=== PATIENT | male | born 1985 | race Caucasian/White ===

== ENCOUNTER 2016-12-24 17:50 | Emergency (ER) | payer SELFPAY ==
[~2016-12-24 17:50] MED LIST: CIPR500T4 PO; KETO10 PO; NOVO7030P2 SQ; NOVORP2 SQ
[2016-12-24 17:51] VITALS: BP 137/85; PULSE 97; RESP 16; TEMP 98.1; O2SAT 94
== END 2016-12-24 19:10 | disposition left against medical advice (07) ==
LOC: NED 17:50
DX: S89.90XA Unspecified injury of unspecified lower leg, initial encounter (principal); X58.XXXA Exposure to other specified factors, initial encounter; Z53.21 Procedure and treatment not carried out due to patient leaving prior to being seen by health care provider
CPT/HCPCS: 99281

== ENCOUNTER 2017-05-25 10:45 | Inpatient (IN) | payer OTHER ==
[~2017-05-25] VITALS: Ht 172.7 cm; Wt 74.4 kg
[2017-05-25 10:47] VITALS: BP 147/94; PULSE 84; RESP 15; TEMP 98.2; O2SAT 99
[2017-05-25 11:04] VITALS: BP 138/80; PULSE 76; RESP 18; TEMP 99; O2SAT 100
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
[2017-05-25] MEDS ORDERED: SODIUM CHLOR 0.9% 1000 ML INJ 1,000 ML IV SCH ×2 (11:16→13:30)
[2017-05-25] MEDS ORDERED: NOVOLOGP2 SQ (11:18)
[2017-05-25] MEDS ORDERED: LANTUS2P SQ (11:18)
[2017-05-25] MEDS ORDERED: HYDR4TAB PO (11:18)
[2017-05-25] MEDS ORDERED: PIPERACIL-TAZO 4.5 GM PREMIX 100 ML IV ONE (11:30)
[2017-05-25] MEDS ORDERED: SODIUM CHLORIDE 0.9% FLUSH 10 ML FLUSH IVF PRN (11:30)
[2017-05-25] MEDS ORDERED: KETOROLAC TROMETHAMINE 30 MG/ML (IVP) VIAL IVP ONE (11:30)
[2017-05-25] MEDS ORDERED: VANCOMYCIN INJ 1,000 MG in SODIUM CHLOR 0.9% 250 ML INJ 250 ML IV ONE (11:30)
[2017-05-25] MEDS ORDERED: PROPOFOL 200 MG/20 ML AMP IV ONE (12:00)
[2017-05-25] MEDS ORDERED: NEOMYCIN/POLYMYXIN 1 ML G.U. IRRIGANT IRRIGATION ONE (12:00)
[2017-05-25] MEDS ORDERED: ONDANSETRON HCL 4 MG/2 ML VIAL IV PUSH ONE (12:00)
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
[2017-05-25] MEDS ORDERED: DEXTROSE 50% IN WATER 50 ML VIAL(D50) IV PUSH ONE (12:15)
--- NOTE | 2017-05-25 12:18 | RADRPT ---
EXAM DATE/TIME: 05/25/2017 11:50 [facility] COMPARISON: No previous studies available for comparison. INDICATIONS : Fever. Pre-operative for right hand surgery from bone infection. MEDICAL HISTORY : None. SURGICAL HISTORY : None. ENCOUNTER: Initial ACUITY: 1 day PAIN SCORE: 0/10 LOCATION: Bilateral chest FINDINGS: A single view of the chest demonstrates the lungs to be symmetrically aerated without evidence of mas s, infiltrate or effusion. The cardiomediastinal contours are unremarkable. Osseous structures are intact. CONCLUSION: No acute cardiopulmonary process. Trever Myrick MD on May 25, 2017 at 12:16 Board Certified Radiologist. This report was verified electronically.
[2017-05-25 12:29] LABS: AUTOMATED NEUTROPHIL # 4.9 TH/MM3 (1.8-7.7); BASOPHIL % 0.4 % (0.0-2.0); EOSINOPHIL # 0.2 TH/MM3 (0-0.4); EOSINOPHIL % 2.2 % (0.0-4.0); HEMO FLAGS DIFF FINAL; LYMPH % 27.8 % (9.0-44.0); LYMPHOCYTE # 2.3 TH/MM3 (1.0-4.8); MEAN CELL VOLUME 83.6 FL (80.0-100.0); MEAN CORPUSCULAR HEMOGLOBIN 28.1 PG (27.0-34.0); MEAN CORPUSCULAR HGB CONC 33.7 % (32.0-36.0); MONO % 11.6 % (0.0-8.0); PLATELET COUNT 270 TH/MM3 (150-450); RED BLOOD COUNT 4.18 MIL/MM3 (4.50-5.90); WHITE BLOOD COUNT 8.4 TH/MM3 (4.0-11.0)
[2017-05-25 12:41] LABS: APTT (PATIENT) 26.8 SEC (24.3-30.1); INTERNATIONAL NORMALIZED RATIO 0.9 RATIO; PROTHROMBIN TIME - PATIENT 10.2 SEC (9.8-11.6)
[2017-05-25] MEDS ORDERED: HYDROmorphone HCL PF 1 MG/ML VIAL IV PUSH ONE ×2 (12:45→18:15)
[2017-05-25 13:01] LABS: ALKALINE PHOSPHATASE 150 U/L (45-117); ALT (GPT) 96 U/L (12-78); ANION GAP 4 MEQ/L (5-15); BICARBONATE 31.2 MEQ/L (21.0-32.0); BLOOD UREA NITROGEN 8 MG/DL (7-18); CHLORIDE 103 MEQ/L (98-107); GLOMERULAR FILTRATION RATE 96 ML/MIN (>89); SODIUM (NA) 138 MEQ/L (136-145); TOTAL BILIRUBIN ADULT 0.3 MG/DL (0.2-1.0)
[2017-05-25 13:02] LABS: AST (GOT) 85 U/L (15-37); POTASSIUM 4.1 MEQ/L (3.5-5.1)
[2017-05-25] MEDS ORDERED: Vancomycin Consult Pharmacy 1 EA OTHER SCH (13:30)
[2017-05-25] MEDS ORDERED: VANCOMYCIN INJ 1,000 MG in SODIUM CHLOR 0.9% 250 ML INJ 250 ML IV SCH (13:30)
[2017-05-25] MEDS ORDERED: DEXT 5%-NACL 0.45% 1000 ML INJ 1,000 ML IV SCH (14:15)
[2017-05-25] MEDS ORDERED: MUPIROCIN 2% OINT 22 GM TUBE ONE (14:39)
[2017-05-25] MEDS ORDERED: LIDOCAINE HCL 2% 50 ML VIAL ONE (14:39)
[2017-05-25] MEDS ORDERED: BUPIVACAINE HCL PF 0.5% 30 ML VIAL ONE (14:39)
[2017-05-25] MEDS ORDERED: ONDANSETRON HCL 4 MG/2 ML VIAL IV PRN (15:00)
[2017-05-25] MEDS ORDERED: MIDAZOLAM HCL 2 MG/2 ML VIAL ONE (15:13)
[2017-05-25] MEDS ORDERED: DEXTROSE 50% IN WATER 50 ML SYRINGE ONE (15:13)
[2017-05-25] MEDS ORDERED: FAMOTIDINE 20 MG/2 ML VIAL ONE (15:13)
[2017-05-25] MEDS ORDERED: VANCOMYCIN HCL 1000 MG VIAL ONE (17:02)
[2017-05-25] MEDS ORDERED: *MEPERIDINE 25 MG INJ VIAL PERIprocedural Use ONLY ONE (17:38)
--- NOTE | 2017-05-25 17:43 | PD.OP ---
Operative Report Preoperative Diagnosis: (1) Acute osteomyelitis of right radius (2) Infectious tenosynovitis of right wrist extensor Postoperative Diagnosis: (1) Infectious tenosynovitis of right wrist extensor (2) Acute osteomyelitis of right radius Procedure: exploration, excisional debridement, wash first extensor compartment right wrist bone biospy distal radius right wrist Anesthesia: general Surgeon: Eduardo Card [employer] Technician(s): josie Operation and Findings: infectious extensor tenosynovitis first extensor compartment right wrist partial tear of abductor pollicis longus and extensor pollicis brevis tendons soft distal radius metaphysis over the first extensor compartment Eduardo Card MD May 25, 2017 17:43
[2017-05-25] MEDS ORDERED: DO NOT ADM ANY ANTICOAGULANT DRUGS PRN (17:45)
[2017-05-25] MEDS ORDERED: *morphine SULFATE 8 MG/ML PERIprocedure ONLY ONE (17:45)
[2017-05-25] MEDS: INSULIN ASPART SUPPLEMENTAL SCALE SQ SCH ×2 (17:49→21:00)
[2017-05-25] MEDS ORDERED: *HYDROmorphone PF 1 MG VIAL PERIprocedural Use ONLY ONE ×2 (17:50→18:02)
[2017-05-25] MEDS ORDERED: PIPERACIL-TAZO 4.5 GM PREMIX 100 ML IV SCH (19:30)
[2017-05-25 20:00] VITALS: BP 162/91; PULSE 61; RESP 18; TEMP 95.4; O2SAT 94
[2017-05-25] MEDS: VANCOMYCIN INJ 1,100 MG in SODIUM CHLOR 0.9% 250 ML INJ 250 ML IV SCH (21:57)
[2017-05-25] MEDS: HYDROmorphone HCL PF 1 MG/ML VIAL IV PUSH PRN (21:57)
[2017-05-25] MEDS: PIPERACIL-TAZO 3.375 GM PREMIX 50 ML IV SCH (22:09)
[2017-05-26] VITALS: BP 153/79; PULSE 68; RESP 16; TEMP 97.3; O2SAT 97
[2017-05-26] MEDS: HYDROmorphone HCL PF 1 MG/ML VIAL IV PUSH PRN ×6 (02:27→23:24)
[2017-05-26] MEDS ORDERED: SODIUM CHLOR 0.9% 1000 ML INJ 1,000 ML IV SCH (02:30)
[2017-05-26] MEDS ORDERED: INSULIN ASPART 1,000 UNITS/10 ML VIAL SQ ONE ×2 (02:30→12:00)
[2017-05-26] MEDS: PIPERACIL-TAZO 3.375 GM PREMIX 50 ML IV SCH ×4 (03:00→21:08)
[2017-05-26 04:00] VITALS: BP 139/84; PULSE 52; RESP 18; TEMP 98; O2SAT 96
[2017-05-26] MEDS: VANCOMYCIN INJ 1,100 MG in SODIUM CHLOR 0.9% 250 ML INJ 250 ML IV SCH ×2 (06:42→13:00)
[2017-05-26] MEDS: INSULIN ASPART SUPPLEMENTAL SCALE SQ SCH ×4 (07:00→21:19)
[2017-05-26 08:00] VITALS: BP 135/81; PULSE 57; RESP 16; TEMP 97.9; O2SAT 97
[2017-05-26] MEDS ORDERED: INSULIN ASPART SUPPLEMENTAL SCALE SQ SCH (08:00)
--- NOTE | 2017-05-26 10:32 | HHI.PR ---
Subjective Remarks wants his lantus at night 30 units. Objective Vitals heart reg lung cta abd s/.nt ext right forearm bandaged. Vital Signs Date Time Temp Pulse Resp B/P (MAP) Pulse Ox O2 Delivery O2 Flow Rate FiO2 05/26/17 07:21 18 05/26/17 04:00 98.0 52 18 139/84 (102) 96 05/26/17 00:00 97.3 68 16 153/79 (103) 97 05/25/17 20:00 95.4 61 18 162/91 (114) 94 05/25/17 18:38 15 05/25/17 18:30 97.6 68 16 143/75 (97) 97 Room Air 05/25/17 18:20 15 05/25/17 18:20 15 05/25/17 18:15 69 15 140/73 (95) 96 Room Air 05/25/17 18:00 72 15 147/88 (107) 95 Room Air 05/25/17 17:50 15 05/25/17 17:45 78 15 151/95 (113) 95 Room Air 05/25/17 17:38 97.9 82 14 159/96 (117) 100 Nasal Cannula 3 05/25/17 14:57 05/25/17 11:04 99.0 76 18 138/80 (99) 100 Room Air 05/25/17 11:04 73 16 100 Room Air 05/25/17 10:47 98.2 84 15 147/94 (111) 99 Result Diagram: 05/25/17 1212 05/25/17 1212 Imaging MRI Wrist W/O Contrast (05/23/17): - Severe focal 1st extensor compartment tendonitis and tenosynovitis. Apparent sinus tract extending to the lateral skin surface as well as adjacent distal radius bony edema and mild erosion. Findings are suspicious for infection. In the setting of infection, the bony findings would indicate osteomyelitis. A/P Problem List: (1) Acute osteomyelitis of right radius ICD Codes: M86.131 - Other acute osteomyelitis, right radius and ulna Status: Acute Plan: - The patient is a 31 y/o WM with type 1 diabetes mellitus, hx of herniated discs and tobacco use. - Pt presented to the ED from Dr. Muniz's office for admission for OR debridement of a right wrist wound and possible osteomyelitis. - Pt states that he was tearing up boards from an old porch and he is rebuilding and started having some pain in the right wrist on 04/28/17. He thinks there he may have possible been bit by a spider as he reports that there were two red dots on his skin where he was having pain and there were a lot of spiders where he was tearing up the boards. He was seen in the ED at [facility] on 04/30 and had an Xray which noted soft tissue swelling about the wrist and hand and was diagnosed with a right wrist strain and was prescribed a wrist brace and pain medication. He was sent to see a sports development officer, Dr. Ross, who sent him for an MRI of the wrist and prescribed Dilaudid. - Outpt MRI Wrist W/O Contrast (05/23/17) which noted severe focal 1st extensor compartment tendonitis and tenosynovitis. Apparent sinus tract extending to the lateral skin surface as well as adjacent distal radius bony edema and mild erosion. Findings are suspicious for infection. In the setting of infection, the bony findings would indicate osteomyelitis. - Two days ago he states that when he took the brace off a small piece of skin came off and the erythema, swelling and pain worsened. His wound opened up and has been draining purulent material for the last 2 days as well. - He was sent to Dr. Muniz's office and was recommended to go to the ED for IV anabiotics, ID consultation -On 05/25: s/p exploration, excisional debridement, wash first extensor compartment right wrist bone biospy distal radius right wrist infectious extensor tenosynovitis first extensor compartment right wrist partial tear of abductor pollicis longus and extensor pollicis brevis tendons soft distal radius metaphysis over the first extensor compartment cont pain control ID consulted He has been on zosyn/vanco f/u surgical cx wound care per Hand surgery. (2) Diabetes mellitus type 1 ICD Codes: E10.9 - Type 1 diabetes mellitus without complications Status: Chronic Plan: - Pt is a type 1 diabetic since age 7. - He currently used NovoLog SSI and Lantus 30 units at bedtime. - He reports that for some time now he has issues with episodic hypoglycemia. -Pt eager to resume 30units at night. Joe Umana MD May 26, 2017 10:32
[2017-05-26 12:00] VITALS: BP 146/84; PULSE 62; RESP 14; TEMP 98; O2SAT 96
[2017-05-26] MEDS ORDERED: PHARMACY ORDERED LAB ONE (12:45)
[2017-05-26 13:56] LABS: BICARBONATE 31.2 MEQ/L (21.0-32.0); INDIRECT BILIRUBIN 0.4 MG/DL (0.0-0.8); MAGNESIUM 2.1 MG/DL (1.5-2.5); POTASSIUM 3.8 MEQ/L (3.5-5.1); TOTAL BILIRUBIN ADULT 0.5 MG/DL (0.2-1.0)
[2017-05-26] MEDS: VANCOMYCIN 1,000 MG/NS 250 ML IV SCH ×4 (15:08→23:25)
[2017-05-26 16:00] VITALS: BP 123/82; PULSE 65; RESP 16; TEMP 97.3; O2SAT 99
[2017-05-26 18:39] LABS: AUTOMATED NEUTROPHIL # 8.5 TH/MM3 (1.8-7.7); BASOPHIL % 0.4 % (0.0-2.0); EOSINOPHIL # 0.1 TH/MM3 (0-0.4); EOSINOPHIL % 0.5 % (0.0-4.0); HEMATOCRIT 37.7 % (39.0-51.0); HEMO FLAGS DIFF FINAL; LYMPH % 14.5 % (9.0-44.0); LYMPHOCYTE # 1.6 TH/MM3 (1.0-4.8); MEAN CELL VOLUME 83.2 FL (80.0-100.0); MEAN CORPUSCULAR HEMOGLOBIN 29.3 PG (27.0-34.0); MEAN CORPUSCULAR HGB CONC 35.3 % (32.0-36.0); MONO % 5.8 % (0.0-8.0); NEUT % 78.8 % (16.0-70.0); PLATELET COUNT 309 TH/MM3 (150-450); RED BLOOD COUNT 4.53 MIL/MM3 (4.50-5.90); RED CELL DISTRIBUTION WIDTH 13.9 % (11.6-17.2); WHITE BLOOD COUNT 10.8 TH/MM3 (4.0-11.0)
--- NOTE | 2017-05-26 18:43 | EKG ---
Date Performed: 05/25/2017 Time Performed: 12:45:06 PTAGE: 31 years EKG: Sinus rhythm NORMAL ECG PREVIOUS TRACING : 11/08/2012 23.31 Compared to prior tracing no significant change DOCTOR: Dinah Huynh Interpretating Date/Time 05/26/2017 18:42:45
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
[2017-05-26 20:00] VITALS: BP 138/75; PULSE 64; RESP 18; TEMP 98; O2SAT 97
[2017-05-26] MEDS: INSULIN DETEMIR 100 UNITS/ML VIAL SQ SCH (21:20)
[2017-05-27] VITALS: PULSE 72; RESP 18; TEMP 97.4; O2SAT 98
[2017-05-27] MEDS: INSULIN ASPART SUPPLEMENTAL SCALE SQ SCH ×7 (00:18→23:55)
[2017-05-27] MEDS: HYDROmorphone HCL PF 1 MG/ML VIAL IV PUSH PRN ×4 (03:29→21:34)
[2017-05-27] MEDS: PIPERACIL-TAZO 3.375 GM PREMIX 50 ML IV SCH ×4 (03:30→20:12)
[2017-05-27] MEDS: VANCOMYCIN 1,000 MG/NS 250 ML IV SCH ×6 (07:28→21:33)
[2017-05-27 12:00] VITALS: BP 161/75; PULSE 62; RESP 16; TEMP 98.2; O2SAT 97
--- NOTE | 2017-05-27 12:22 | PD.ORT.PN ---
Subjective Post Op Day #: 2 Pain Scale: pain improved, but right wrist still painful Subjective Remarks some better Objective Vitals Vital Signs Date Time Temp Pulse Resp B/P (MAP) Pulse Ox O2 Delivery O2 Flow Rate FiO2 05/27/17 00:00 97.4 72 18 98 05/26/17 20:00 98.0 64 18 138/75 (96) 97 05/26/17 16:00 97.3 65 16 123/82 (96) 99 I/O 05/26/17 05/26/17 05/26/17 05/27/17 05/27/17 05/27/17 07:00 15:00 23:00 07:00 15:00 23:00 Intake Total 850 ml 1020 ml Output Total 3050 ml 1000 ml Balance -3050 ml -150 ml 1020 ml Intake Oral 800 ml 720 ml IV Total 50 ml 300 ml Output Urine Total 3050 ml 1000 ml # Bowel Movements 0 Result Diagram: 05/26/17 1808 05/26/17 1311 Other Results cultures tissue and swab right wrist negative thus far Objective Remarks right wrist wound with minimal erythema and serosanguinous drainage on the dressing. Able to move fingers well Assessment & Plan Ortho Post Op Day #: 2 Problem List: (1) Acute osteomyelitis of right radius ICD Codes: M86.131 - Other acute osteomyelitis, right radius and ulna Status: Acute Plan: Continue IV antibiotics and check cultures. All Cultures negative thus far. Had Temp Wound cleaned with normal saline and lightly repacked with 1/4" plain gauze and sterile 4x4s, ABD and Sanchez wrap applied. Has had improvement in redness and pain. Wound cleaned with normal saline and repacked with 1/4" plain gauze and sterile 4x4s, ABD and Sanchez applied. Continue IV antibiotics and check cultures which are negative thus far. Improving and Dr. Card will see tomorrow, but had temp of 100.3 yesterday. (2) Infectious tenosynovitis of right wrist extensor ICD Codes: M65.131 - Other infective (teno)synovitis, right wrist (3) Diabetes mellitus type 1 ICD Codes: E10.9 - Type 1 diabetes mellitus without complications Status: Chronic Eunice,Marci Steinberg MD May 27, 2017 12:22
[2017-05-27] MEDS ORDERED: PHARMACY ORDERED LAB ONE (14:45)
--- NOTE | 2017-05-27 15:45 | HHI.PR ---
Subjective Remarks no complaints Objective Vitals lying on the couch heart reg lungc ta abd s/nt ext right forearm bandaged dark scars on both forearms/arms Vital Signs Date Time Temp Pulse Resp B/P (MAP) Pulse Ox O2 Delivery O2 Flow Rate FiO2 05/27/17 12:00 98.2 62 16 161/75 (103) 97 05/27/17 00:00 97.4 72 18 98 05/26/17 20:00 98.0 64 18 138/75 (96) 97 05/26/17 16:00 97.3 65 16 123/82 (96) 99 Result Diagram: 05/26/17 1808 05/26/17 1311 Imaging MRI Wrist W/O Contrast (05/23/17): - Severe focal 1st extensor compartment tendonitis and tenosynovitis. Apparent sinus tract extending to the lateral skin surface as well as adjacent distal radius bony edema and mild erosion. Findings are suspicious for infection. In the setting of infection, the bony findings would indicate osteomyelitis. A/P Problem List: (1) Acute osteomyelitis of right radius ICD Codes: M86.131 - Other acute osteomyelitis, right radius and ulna Status: Acute Plan: - The patient is a 31 y/o WM with type 1 diabetes mellitus, hx of herniated discs and tobacco use. Reported recent hep c dx by family/pt denies - Pt presented to the ED from Dr. Muniz's office for admission for OR debridement of a right wrist wound and possible osteomyelitis. - Pt states that he was tearing up boards from an old porch and he is rebuilding and started having some pain in the right wrist on 04/28/17. He thinks there he may have possible been bit by a spider as he reports that there were two red dots on his skin where he was having pain and there were a lot of spiders where he was tearing up the boards. He was seen in the ED at [facility] on 04/30 and had an Xray which noted soft tissue swelling about the wrist and hand and was diagnosed with a right wrist strain and was prescribed a wrist brace and pain medication. He was sent to see a portfolio specialist, Dr. Ross, who sent him for an MRI of the wrist and prescribed Dilaudid. - Outpt MRI Wrist W/O Contrast (05/23/17) which noted severe focal 1st extensor compartment tendonitis and tenosynovitis. Apparent sinus tract extending to the lateral skin surface as well as adjacent distal radius bony edema and mild erosion. Findings are suspicious for infection. In the setting of infection, the bony findings would indicate osteomyelitis. - Two days ago he states that when he took the brace off a small piece of skin came off and the erythema, swelling and pain worsened. His wound opened up and has been draining purulent material for the last 2 days as well. - He was sent to Dr. Muniz's office and was recommended to go to the ED for IV anabiotics, ID consultation -On 05/25: s/p exploration, excisional debridement, wash first extensor compartment right wrist bone biospy distal radius right wrist infectious extensor tenosynovitis first extensor compartment right wrist partial tear of abductor pollicis longus and extensor pollicis brevis tendons soft distal radius metaphysis over the first extensor compartment -05/25 surgical cxs growing viridans strep. cont pain control ID consulted He has been on zosyn/vanco f/u surgical cx final wound care per Hand surgery. bandaged changed today. (2) Diabetes mellitus type 1 ICD Codes: E10.9 - Type 1 diabetes mellitus without complications Status: Chronic Plan: - Pt is a type 1 diabetic since age 7. - He currently used NovoLog SSI and Lantus 30 units at bedtime. - He reports that for some time now he has issues with episodic hypoglycemia. - on levemir currently. Joe Umana MD May 27, 2017 15:45
[2017-05-27 16:00] VITALS: BP 136/68; PULSE 64; RESP 17; TEMP 98.4; O2SAT 96
[2017-05-27] MEDS: HYDROmorphone HCL 2 MG TAB PO PRN ×2 (16:01→20:13)
[2017-05-27 20:00] VITALS: BP 154/95; PULSE 68; RESP 18; TEMP 97.8; O2SAT 97
[2017-05-27] MEDS: INSULIN DETEMIR 100 UNITS/ML VIAL SQ SCH (20:16)
[2017-05-27 22:29] VITALS: BP 148/74
[2017-05-28] VITALS: BP 144/66; PULSE 58; RESP 18; TEMP 95.6; O2SAT 98
[2017-05-28] MEDS: HYDROmorphone HCL 2 MG TAB PO PRN ×6 (00:15→21:37)
[2017-05-28] MEDS: HYDROmorphone HCL PF 1 MG/ML VIAL IV PUSH PRN ×6 (01:33→23:52)
[2017-05-28] MEDS: PIPERACIL-TAZO 3.375 GM PREMIX 50 ML IV SCH ×4 (03:27→19:54)
[2017-05-28] MEDS: INSULIN ASPART SUPPLEMENTAL SCALE SQ SCH ×6 (03:32→23:59)
[2017-05-28] MEDS: VANCOMYCIN 1,000 MG/NS 250 ML IV SCH ×6 (05:41→21:38)
[2017-05-28 08:00] VITALS: BP 150/83; PULSE 60; RESP 20; TEMP 97.4; O2SAT 96
--- NOTE | 2017-05-28 10:36 | HHI.PR ---
Subjective Remarks Pt overall feeling better. Pain is controlled Afebrile Objective Vitals Vital Signs Date Time Temp Pulse Resp B/P (MAP) Pulse Ox O2 Delivery O2 Flow Rate FiO2 05/28/17 08:00 97.4 60 20 150/83 (105) 96 05/28/17 07:45 Room Air 05/28/17 06:11 20 05/28/17 05:16 20 05/28/17 00:00 95.6 58 18 144/66 (92) 98 05/28/17 00:00 Room Air 05/27/17 22:29 148/74 (98) 05/27/17 20:00 Room Air 05/27/17 20:00 97.8 68 18 154/95 (114) 97 05/27/17 16:00 98.4 64 17 136/68 (90) 96 05/27/17 12:00 98.2 62 16 161/75 (103) 97 05/28/17 05/28/17 05/29/17 15:00 23:00 07:00 Intake Total 240 ml Balance 240 ml Intake Oral 240 ml Result Diagram: 05/26/17 1808 05/28/17 0515 Other Results Laboratory Tests Test 05/26/17 13:11 05/26/17 18:08 05/27/17 15:25 05/28/17 05:15 Blood Urea Nitrogen 10 MG/DL Creatinine 1.08 MG/DL 0.95 MG/DL Random Glucose 259 MG/DL Total Protein 7.4 GM/DL Albumin 2.6 GM/DL Calcium Level 8.8 MG/DL Magnesium Level 2.1 MG/DL Alkaline Phosphatase 215 U/L Aspartate Amino Transf (AST/SGOT) 161 U/L Alanine Aminotransferase (ALT/SGPT) 225 U/L Total Bilirubin 0.5 MG/DL Direct Bilirubin 0.1 MG/DL Sodium Level 138 MEQ/L Potassium Level 3.8 MEQ/L Chloride Level 100 MEQ/L Carbon Dioxide Level 31.2 MEQ/L Anion Gap 7 MEQ/L Estimat Glomerular Filtration Rate 81 ML/MIN 94 ML/MIN Indirect Bilirubin 0.4 MG/DL Vancomycin Level Trough 19.5 MCG/ML 15.9 MCG/ML White Blood Count 10.8 TH/MM3 Red Blood Count 4.53 MIL/MM3 Hemoglobin 13.3 GM/DL Hematocrit 37.7 % Mean Corpuscular Volume 83.2 FL Mean Corpuscular Hemoglobin 29.3 PG Mean Corpuscular Hemoglobin Concent 35.3 % Red Cell Distribution Width 13.9 % Platelet Count 309 TH/MM3 Mean Platelet Volume 7.9 FL Neutrophils (%) (Auto) 78.8 % Lymphocytes (%) (Auto) 14.5 % Monocytes (%) (Auto) 5.8 % Eosinophils (%) (Auto) 0.5 % Basophils (%) (Auto) 0.4 % Neutrophils # (Auto) 8.5 TH/MM3 Lymphocytes # (Auto) 1.6 TH/MM3 Monocytes # (Auto) 0.6 TH/MM3 Eosinophils # (Auto) 0.1 TH/MM3 Basophils # (Auto) 0.0 TH/MM3 CBC Comment DIFF FINAL Differential Comment Imaging MRI Wrist W/O Contrast (05/23/17): - Severe focal 1st extensor compartment tendonitis and tenosynovitis. Apparent sinus tract extending to the lateral skin surface as well as adjacent distal radius bony edema and mild erosion. Findings are suspicious for infection. In the setting of infection, the bony findings would indicate osteomyelitis. Objective Remarks General: NAD, AAOx3 Chest: CTA Cardiac: Regular Abd: +BS, soft ND/NT Ext: Right wrist wound with sutures in place, erythema and swelling significantly improved. A/P Problem List: (1) Acute osteomyelitis of right radius ICD Codes: M86.131 - Other acute osteomyelitis, right radius and ulna Status: Acute Plan: - The patient is a 31 y/o WM with type 1 diabetes mellitus, hx of herniated discs and tobacco use. Reported recent hep c dx by family/pt denies - Pt presented to the ED from Dr. Muniz's office for admission for OR debridement of a right wrist wound and possible osteomyelitis. - Pt states that he was tearing up boards from an old porch and he is rebuilding and started having some pain in the right wrist on 04/28/17. He thinks there he may have possible been bit by a spider as he reports that there were two red dots on his skin where he was having pain and there were a lot of spiders where he was tearing up the boards. He was seen in the ED at [facility] on 04/30 and had an Xray which noted soft tissue swelling about the wrist and hand and was diagnosed with a right wrist strain and was prescribed a wrist brace and pain medication. He was sent to see a clerical support specialist, Dr. Ross, who sent him for an MRI of the wrist and prescribed Dilaudid. - Outpt MRI Wrist W/O Contrast (05/23/17) which noted severe focal 1st extensor compartment tendonitis and tenosynovitis. Apparent sinus tract extending to the lateral skin surface as well as adjacent distal radius bony edema and mild erosion. Findings are suspicious for infection. In the setting of infection, the bony findings would indicate osteomyelitis. - Two days ago he states that when he took the brace off a small piece of skin came off and the erythema, swelling and pain worsened. His wound opened up and has been draining purulent material for the last 2 days as well. - He was sent to Dr. Muniz's office and was recommended to go to the ED for IV anabiotics, ID consultation -On 05/25: s/p exploration, excisional debridement, wash first extensor compartment right wrist bone biospy distal radius right wrist infectious extensor tenosynovitis first extensor compartment right wrist partial tear of abductor pollicis longus and extensor pollicis brevis tendons soft distal radius metaphysis over the first extensor compartment - Surgical cxs (05/25) --> growing viridans strep. - Await bone biopsy results - Pt is on Zosyn and Vancomycin. - ID following. - Pain control PRN - Wound care per Hand surgery. Bandaged changed today on 05/27. (2) Diabetes mellitus type 1 ICD Codes: E10.9 - Type 1 diabetes mellitus without complications Status: Chronic Plan: - Pt is a type 1 diabetic since age 7. - He currently used NovoLog SSI and Lantus 30 units at bedtime. - He reports that for some time now he has issues with episodic hypoglycemia. - P tis on Levemir 30 units HS and SSI. Assessment and Plan Patient examined. Assessment and plan formulated with Patti Tirado PA-C. I agree with the above. Patti Tirado May 28, 2017 10:36 Cordell Golden DO May 31, 2017 01:19
--- NOTE | 2017-05-28 11:21 | HHI.PR ---
Subjective Remarks right wrist surgery follow up complains of mild pain denies any tingling or numbness denies fever on iv antibiotics Objective Vital Signs Date Time Temp Pulse Resp B/P (MAP) Pulse Ox O2 Delivery O2 Flow Rate FiO2 05/28/17 08:00 97.4 60 20 150/83 (105) 96 05/28/17 07:45 Room Air 05/28/17 06:11 20 05/28/17 05:16 20 05/28/17 00:00 95.6 58 18 144/66 (92) 98 05/28/17 00:00 Room Air 05/27/17 22:29 148/74 (98) 05/27/17 20:00 Room Air 05/27/17 20:00 97.8 68 18 154/95 (114) 97 05/27/17 16:00 98.4 64 17 136/68 (90) 96 05/27/17 12:00 98.2 62 16 161/75 (103) 97 I/O 05/27/17 05/27/17 05/27/17 05/28/17 05/28/17 05/28/17 07:00 15:00 23:00 07:00 15:00 23:00 Intake Total 1020 ml 1900 ml 300 ml 240 ml Output Total 1200 ml Balance 1020 ml 700 ml 300 ml 240 ml Intake Oral 720 ml 1600 ml 240 ml IV Total 300 ml 300 ml 300 ml Output Urine Total 1200 ml # Bowel Movements 1 right wrist: packing in place decreased swelling and erythema minimal drainage able to move his thumb with pain wrist range of motion is painless cultures: Strept viridans Result Diagram: 05/26/17 1808 05/28/17 0515 Assessment and Plan Assessment and Plan 31 year old male s/p I and D, excisional debridement first extensor compartment and bone biopsy right distal radius pod 3 Plan: packing removed wound cleaned with hydrogen peroxide dry dressing applied continue iv antibiotics based on ID recommendations pathology pending hand surgery will follow. Eduardo Card MD May 28, 2017 11:21
[2017-05-28 12:00] VITALS: BP 158/77; PULSE 66; RESP 20; TEMP 98.9; O2SAT 97
--- NOTE | 2017-05-28 12:23 | MP ---
cc: SYDNEE MARSHALL MD DATE OF SURGERY May 25, 2017 PREOPERATIVE DIAGNOSES 1. Infectious extensor tenosynovitis first dorsal compartment right wrist. 2. Acute osteomyelitis distal radius right wrist. POSTOPERATIVE DIAGNOSES 1. Infectious extensor tenosynovitis first dorsal compartment right wrist. 2. Acute osteomyelitis distal radius right wrist. PROCEDURE Exploration, excisional debridement first extensor compartment right wrist and bone biopsy distal radius right wrist. SURGEON Dr. Marshall ANESTHESIA General. ESTIMATED BLOOD LOSS Minimal. TOURNIQUET TIME 36 minutes at 250 mmHg. SPECIMEN Sent for culture and sensitivity and bone biopsy. Specimen was sent for pathology to rule out osteomyelitis. DISPOSITION To PACU stable. INDICATIONS FOR PROCEDURE The patient is a 31-year-old right-hand dominant male with insulin-dependent diabetes, presented today to the office with complaints of pain, swelling, redness involving the right wrist of 3 weeks duration. The patient gives history of injury, questionable bug bite involving the right wrist three weeks ago. He was initially seen in the ER. He was splinted and three days ago the patient noticed pain, swelling, redness and drainage from the region. He had an MRI scan which showed extensive tenosynovitis involving the first dorsal compartment with cyanosis extending to the distal radius with bony edema and erosion, likely osteomyelitis. On examination he had sinuses over the first dorsal compartment of the wrist, two in number and with surrounding swelling, erythema and drainage. There is evidence of necrotic tissue within the sinus. He had diffuse tenderness. The range of motion of thumb and wrist was painful. He had normal white blood count. The patient was consented for exploration, excisional debridement of the right wrist. The patient was explained the risks and benefits of the procedure. PROCEDURE The patient was brought to the operating room under general anesthesia. The right upper extremity was thoroughly prepped and draped. Incision site was marked over the first dorsal compartment of the wrist in a curvilinear fashion measuring about 3-4 cm. After limb elevation, the tourniquet was inflated to 250 mmHg. Incision was then made over the proposed incision site where soft tissue dissection was carried out. There was extensive induration of the surrounding soft tissues. Evidence of necrotic and devitalized tissue was noted in the region. Excisional debridement of devitalized tissue/necrotic tissue was carried out. The extensor compartment sheath was involved with the infection. There was partial necrosis of the abductor pollicis longus and extensor pollicis brevis tendon noted. The extensor compartment was opened both proximally and distally. Excisional debridement of the devitalized extensor tendons were carried out. On the floor of the first dorsal compartment, the distal radius metaphysis appeared to be soft. Using a curette, biopsy of the distal radius over the region was carried out. The material was sent for pathology to rule out osteomyelitis. Throughout the procedure the superficial branch of the radial nerve was protected out of harm's way. Thorough wash was given using normal saline mixed with irrigant and vancomycin. Tourniquet was deflated, total tourniquet time was 36 minutes. She had good distal circulation after release of the tourniquet. Bleeding points were cauterized with bipolar cautery. Packing of the wounds were carried out with 1/4-inch Iodoform packing material and the skin was approximated loosely with 4-0 nylon in a horizontal mattress interrupted fashion. Bulky hand dressing was applied which was held in place by a bias hand wrap. He had good distal circulation at the end of the procedure. He was recovered and sent to PACU in stable condition. The plan will be to change the packing on day #2, continued IV antibiotics based on ID recommendation and follow up cultures. Sydnee Marshall MD SE/SSB /5:44 PM /11:58 AM CESAR
[2017-05-28 16:00] VITALS: BP 132/73; PULSE 60; RESP 20; TEMP 97.1; O2SAT 99
[2017-05-28 20:00] VITALS: BP 141/75; PULSE 65; RESP 20; TEMP 98.1; O2SAT 97
[2017-05-28] MEDS: INSULIN DETEMIR 100 UNITS/ML VIAL SQ SCH (20:01)
--- NOTE | 2017-05-28 23:23 | HHI.IDPN ---
Subjective Subjective Remarks Delayed entry - pt was seen ealier today in pm + low grade fever clx growing vir strep - 3/3 tolerates abx OK, no rash, no diarrhea or vomiting Antibiotics zosyn vancomycin Allergies: Coded Allergies: Sugars, Metabolically Active (Unverified Allergy, Severe, 05/25/17) acetaminophen (Unverified Allergy, Severe, 05/25/17) tramadol (Unverified Allergy, Severe, 05/25/17) atenolol (Verified Allergy, Intermediate, FLUSHED , 05/25/17) FLUSHED/RED hydrocodone (Verified Allergy, Intermediate, ITCHY, 05/25/17) lisinopril (Verified Allergy, Intermediate, FLUSHED , 05/25/17) FLUSHED/RED oxycodone (Verified Allergy, Intermediate, ITCHY, 05/25/17) propoxyphene (Unverified Adverse Reaction, Severe, SKIN GETS FLUSHED AND PT STS FEELS FUNNY, 05/25/17) Uncoded Allergies: creatine (Allergy, Unknown, 01/10/15) Objective . Vital Signs Date Time Temp Pulse Resp B/P (MAP) Pulse Ox O2 Delivery O2 Flow Rate FiO2 05/28/17 20:00 98.1 65 20 141/75 (97) 97 05/28/17 16:00 97.1 60 20 132/73 (92) 99 05/28/17 12:00 98.9 66 20 158/77 (104) 97 05/28/17 08:00 97.4 60 20 150/83 (105) 96 05/28/17 07:45 Room Air 05/28/17 06:11 20 05/28/17 05:16 20 05/28/17 00:00 95.6 58 18 144/66 (92) 98 05/28/17 00:00 Room Air 05/28/17 05/28/17 05/29/17 15:00 23:00 07:00 Intake Total 240 ml 480 ml Balance 240 ml 480 ml Intake Oral 240 ml 480 ml # Voids 3 # Bowel Movements 1 . Laboratory Tests Test 05/28/17 05:15 Creatinine 0.95 MG/DL Estimat Glomerular Filtration Rate 94 ML/MIN Imaging Last Impressions Chest X-Ray 05/25/17 1116 Signed Impressions: Service Date/Time: Thursday, May 25, 2017 11:50 - CONCLUSION: No acute cardiopulmonary process. Trever Myrick MD Physical Exam CONSTITUTIONAL/GENERAL: This is an adequately nourished patient, in no apparent distress. TUBES/LINES/DRAINS: SKIN: No jaundice, rashes, or lesions. Skin temperature appropriate. Not diaphoretic. Fairly fresh hyperpiggmented needle track martell on R a/c fossa CARDIOVASCULAR: Regular rate and rhythm without murmurs, gallops, or rubs. RESPIRATORY/CHEST: Symmetric, unlabored respirations. Clear to auscultation. GASTROINTESTINAL: Abdomen soft, non-tender, nondistended. No hepato-splenomegaly , or palpable masses. No guarding. Bowel sounds present. MUSCULOSKELETAL: Extremities without clubbing, cyanosis, or edema. No joint tenderness or effusion noted. No calf tenderness. No mottling or clubbing. RUE with dressing in place, no ascending lymphantitis /cellulitis / no ipsilaterla axillae lymphadenopathy fingers free of neurovascular deficits NEUROLOGICAL: Awake and alert. Motor and sensory grossly within normal limits. Follows commands. Clear speech. Moves all extremities. PSYCHIATRIC: No obvious anxiety/depression. no apparent hallucinations or other psychotic thought process. Assessment & Plan Remarks Infectious tenosynovitis of right wrist extensor Acute osteomyelitis of right radius sp exploration, excisional debridement, wash first extensor compartment right wrist, bone biospy distal radius right wrist - clx with ciridans strep (mouth ernesto) 3/3 IVDU, by needle markes at least within last several months, but denies it, stes it was yrs ago Diabetes type I - dc vancomycin and zosyn - CFTX - anticipate 6 wks of IV abx : Dalvancin is an option if PICC line for OPAT is a concern with h/o ongoing IVDU dw Dr Chantel Camacho,Liudmila Meza MD May 28, 2017 23:23
[2017-05-28] MEDS: ZOLPIDEM TARTRATE 5 MG TAB PO PRN (23:57)
[2017-05-29] VITALS: BP 159/76; PULSE 52; RESP 18; TEMP 97.9; O2SAT 98
[2017-05-29] MEDS: HYDROmorphone HCL 2 MG TAB PO PRN ×5 (02:08→20:29)
[2017-05-29] MEDS: PIPERACIL-TAZO 3.375 GM PREMIX 50 ML IV SCH ×2 (02:09→08:17)
[2017-05-29] MEDS: HYDROmorphone HCL PF 1 MG/ML VIAL IV PUSH PRN ×5 (03:59→22:26)
[2017-05-29] MEDS: INSULIN ASPART SUPPLEMENTAL SCALE SQ SCH ×5 (04:00→23:02)
[2017-05-29] MEDS: VANCOMYCIN 1,000 MG/NS 250 ML IV SCH ×2 (06:16)
[2017-05-29] MEDS ORDERED: PHARMACY ORDERED LAB ONE (06:45)
[2017-05-29 07:31] LABS: AUTOMATED NEUTROPHIL # 5.3 TH/MM3 (1.8-7.7); BASOPHIL % 0.5 % (0.0-2.0); EOSINOPHIL # 0.1 TH/MM3 (0-0.4); EOSINOPHIL % 0.8 % (0.0-4.0); HEMATOCRIT 39.2 % (39.0-51.0); HEMO FLAGS DIFF FINAL; LYMPH % 29.2 % (9.0-44.0); LYMPHOCYTE # 2.6 TH/MM3 (1.0-4.8); MEAN CELL VOLUME 83.9 FL (80.0-100.0); MEAN CORPUSCULAR HEMOGLOBIN 28.3 PG (27.0-34.0); MEAN CORPUSCULAR HGB CONC 33.7 % (32.0-36.0); MONO % 9.4 % (0.0-8.0); NEUT % 60.1 % (16.0-70.0); PLATELET COUNT 330 TH/MM3 (150-450); RED BLOOD COUNT 4.68 MIL/MM3 (4.50-5.90); WHITE BLOOD COUNT 8.9 TH/MM3 (4.0-11.0)
[2017-05-29 07:32] LABS: BICARBONATE 23.3 MEQ/L (21.0-32.0); POTASSIUM 4.1 MEQ/L (3.5-5.1)
[2017-05-29 08:00] VITALS: BP_SYST 80; PULSE 53; RESP 18; TEMP 97.9; O2SAT 98
[2017-05-29 12:00] VITALS: BP 147/72; PULSE 59; RESP 20; TEMP 97.8; O2SAT 96
--- NOTE | 2017-05-29 13:58 | HHI.PR ---
Subjective Remarks No new complaints Pain is controlled No fevers Objective Vitals Vital Signs Date Time Temp Pulse Resp B/P (MAP) Pulse Ox O2 Delivery O2 Flow Rate FiO2 05/29/17 12:00 97.8 59 20 147/72 (97) 96 05/29/17 08:00 97.9 53 18 80/ 98 05/29/17 00:00 97.9 52 18 159/76 (103) 98 05/28/17 20:00 98.1 65 20 141/75 (97) 97 05/28/17 16:00 97.1 60 20 132/73 (92) 99 Result Diagram: 05/29/17 0610 05/29/17 0610 Other Results Laboratory Tests Test 05/27/17 15:25 05/28/17 05:15 05/29/17 06:10 Vancomycin Level Trough 15.9 MCG/ML 20.9 MCG/ML Creatinine 0.95 MG/DL 1.01 MG/DL Estimat Glomerular Filtration Rate 94 ML/MIN 87 ML/MIN White Blood Count 8.9 TH/MM3 Red Blood Count 4.68 MIL/MM3 Hemoglobin 13.2 GM/DL Hematocrit 39.2 % Mean Corpuscular Volume 83.9 FL Mean Corpuscular Hemoglobin 28.3 PG Mean Corpuscular Hemoglobin Concent 33.7 % Red Cell Distribution Width 14.0 % Platelet Count 330 TH/MM3 Mean Platelet Volume 7.6 FL Neutrophils (%) (Auto) 60.1 % Lymphocytes (%) (Auto) 29.2 % Monocytes (%) (Auto) 9.4 % Eosinophils (%) (Auto) 0.8 % Basophils (%) (Auto) 0.5 % Neutrophils # (Auto) 5.3 TH/MM3 Lymphocytes # (Auto) 2.6 TH/MM3 Monocytes # (Auto) 0.8 TH/MM3 Eosinophils # (Auto) 0.1 TH/MM3 Basophils # (Auto) 0.0 TH/MM3 CBC Comment DIFF FINAL Differential Comment Blood Urea Nitrogen 12 MG/DL Random Glucose 145 MG/DL Calcium Level 8.5 MG/DL Magnesium Level 2.0 MG/DL Sodium Level 139 MEQ/L Potassium Level 4.1 MEQ/L Chloride Level 107 MEQ/L Carbon Dioxide Level 23.3 MEQ/L Anion Gap 9 MEQ/L Imaging MRI Wrist W/O Contrast (05/23/17): - Severe focal 1st extensor compartment tendonitis and tenosynovitis. Apparent sinus tract extending to the lateral skin surface as well as adjacent distal radius bony edema and mild erosion. Findings are suspicious for infection. In the setting of infection, the bony findings would indicate osteomyelitis. Objective Remarks General: NAD, AAOx3 Chest: CTA Cardiac: Regular Abd: +BS, soft ND/NT Ext: Right wrist wound with sutures in place, erythema and swelling significantly improved. A/P Problem List: (1) Acute osteomyelitis of right radius ICD Codes: M86.131 - Other acute osteomyelitis, right radius and ulna Status: Acute Plan: - The patient is a 31 y/o WM with type 1 diabetes mellitus, hx of herniated discs and tobacco use. Reported recent hep c dx by family/pt denies - Pt presented to the ED from Dr. Muniz's office for admission for OR debridement of a right wrist wound and possible osteomyelitis. - Pt states that he was tearing up boards from an old porch and he is rebuilding and started having some pain in the right wrist on 04/28/17. He thinks there he may have possible been bit by a spider as he reports that there were two red dots on his skin where he was having pain and there were a lot of spiders where he was tearing up the boards. He was seen in the ED at [facility] on 04/30 and had an Xray which noted soft tissue swelling about the wrist and hand and was diagnosed with a right wrist strain and was prescribed a wrist brace and pain medication. He was sent to see a community sports coordinator, Dr. Ross, who sent him for an MRI of the wrist and prescribed Dilaudid. - Outpt MRI Wrist W/O Contrast (05/23/17) which noted severe focal 1st extensor compartment tendonitis and tenosynovitis. Apparent sinus tract extending to the lateral skin surface as well as adjacent distal radius bony edema and mild erosion. Findings are suspicious for infection. In the setting of infection, the bony findings would indicate osteomyelitis. - Two days ago he states that when he took the brace off a small piece of skin came off and the erythema, swelling and pain worsened. His wound opened up and has been draining purulent material for the last 2 days as well. - He was sent to Dr. Muniz's office and was recommended to go to the ED for IV anabiotics, ID consultation -On 05/25: s/p exploration, excisional debridement, wash first extensor compartment right wrist bone biospy distal radius right wrist infectious extensor tenosynovitis first extensor compartment right wrist partial tear of abductor pollicis longus and extensor pollicis brevis tendons soft distal radius metaphysis over the first extensor compartment - Surgical cxs (05/25) --> growing viridans strep. - Await bone biopsy results - Pt is on Zosyn and Vancomycin. - ID following. Further antibiotic recommendations for discharge are being worked out by ID. - Pain control PRN - Wound care per Hand surgery. Bandaged changed by Dr. Alejandra on 05/27. (2) Diabetes mellitus type 1 ICD Codes: E10.9 - Type 1 diabetes mellitus without complications Status: Chronic Plan: - Pt is a type 1 diabetic since age 7. - He currently used NovoLog SSI and Lantus 30 units at bedtime. - He reports that for some time now he has issues with episodic hypoglycemia. - Pt is on Levemir 30 units HS and SSI. Assessment and Plan Patient examined. Assessment and plan formulated with Patti Tirado PA-C. I agree with the above. Patti Tirado May 29, 2017 13:58 Cordell Golden DO May 31, 2017 01:21
[2017-05-29 16:00] VITALS: BP 141/68; PULSE 52; RESP 19; TEMP 97.5; O2SAT 95
[2017-05-29] MEDS ORDERED: VANCOMYCIN INJ 1,500 MG in SODIUM CHLORID 0.9% 500 ML INJ 500 ML IV SCH (18:00)
[2017-05-29 20:00] VITALS: BP 143/77; PULSE 65; RESP 20; TEMP 99.1; O2SAT 97
[2017-05-29] MEDS: ZOLPIDEM TARTRATE 5 MG TAB PO PRN (22:25)
[2017-05-29] MEDS: INSULIN DETEMIR 100 UNITS/ML VIAL SQ SCH (23:02)
[2017-05-30] VITALS: BP 128/59; PULSE 64; RESP 18; TEMP 96.4; O2SAT 97
[2017-05-30] MEDS: HYDROmorphone HCL 2 MG TAB PO PRN ×6 (00:19→22:11)
[2017-05-30] MEDS ORDERED: INSULIN ASPART 1,000 UNITS/10 ML VIAL SQ ONE (00:30)
[2017-05-30] MEDS: INSULIN ASPART SUPPLEMENTAL SCALE SQ SCH ×7 (01:40→22:56)
[2017-05-30] MEDS: HYDROmorphone HCL PF 1 MG/ML VIAL IV PUSH PRN ×2 (05:47→11:20)
[2017-05-30 08:00] VITALS: BP 127/67; PULSE 63; RESP 18; TEMP 98.1; O2SAT 98
[2017-05-30 12:00] VITALS: BP 137/66; PULSE 61; RESP 18; TEMP 98.5; O2SAT 97
--- NOTE | 2017-05-30 15:07 | HHI.PR ---
Subjective Remarks Patient without any specific complaints. He is anxious for discharge. Will need to have PICC placed today and arrange for outpt IV antibiotics Objective Vitals Vital Signs Date Time Temp Pulse Resp B/P (MAP) Pulse Ox O2 Delivery O2 Flow Rate FiO2 05/30/17 12:00 98.5 61 18 137/66 (89) 97 05/30/17 08:00 98.1 63 18 127/67 (87) 98 05/30/17 00:00 96.4 64 18 128/59 (82) 97 05/29/17 20:00 99.1 65 20 143/77 (99) 97 05/29/17 16:00 97.5 52 19 141/68 (92) 95 Result Diagram: 05/29/17 0610 05/29/17 2304 Other Results Laboratory Tests Test 05/29/17 06:10 05/29/17 23:04 White Blood Count 8.9 TH/MM3 Red Blood Count 4.68 MIL/MM3 Hemoglobin 13.2 GM/DL Hematocrit 39.2 % Mean Corpuscular Volume 83.9 FL Mean Corpuscular Hemoglobin 28.3 PG Mean Corpuscular Hemoglobin Concent 33.7 % Red Cell Distribution Width 14.0 % Platelet Count 330 TH/MM3 Mean Platelet Volume 7.6 FL Neutrophils (%) (Auto) 60.1 % Lymphocytes (%) (Auto) 29.2 % Monocytes (%) (Auto) 9.4 % Eosinophils (%) (Auto) 0.8 % Basophils (%) (Auto) 0.5 % Neutrophils # (Auto) 5.3 TH/MM3 Lymphocytes # (Auto) 2.6 TH/MM3 Monocytes # (Auto) 0.8 TH/MM3 Eosinophils # (Auto) 0.1 TH/MM3 Basophils # (Auto) 0.0 TH/MM3 CBC Comment DIFF FINAL Differential Comment Blood Urea Nitrogen 12 MG/DL Creatinine 1.01 MG/DL Random Glucose 145 MG/DL 779 MG/DL Calcium Level 8.5 MG/DL Magnesium Level 2.0 MG/DL Sodium Level 139 MEQ/L Potassium Level 4.1 MEQ/L Chloride Level 107 MEQ/L Carbon Dioxide Level 23.3 MEQ/L Anion Gap 9 MEQ/L Estimat Glomerular Filtration Rate 87 ML/MIN Vancomycin Level Trough 20.9 MCG/ML Imaging MRI Wrist W/O Contrast (05/23/17): - Severe focal 1st extensor compartment tendonitis and tenosynovitis. Apparent sinus tract extending to the lateral skin surface as well as adjacent distal radius bony edema and mild erosion. Findings are suspicious for infection. In the setting of infection, the bony findings would indicate osteomyelitis. Objective Remarks General: NAD, AAOx3 Chest: CTA Cardiac: Regular Abd: +BS, soft ND/NT Ext: Right wrist bandages are c/d/i A/P Problem List: (1) Acute osteomyelitis of right radius ICD Codes: M86.131 - Other acute osteomyelitis, right radius and ulna Status: Acute Plan: - The patient is a 31 y/o WM with type 1 diabetes mellitus, hx of herniated discs and tobacco use. Reported recent hep c dx by family/pt denies - Pt presented to the ED from Dr. Muniz's office for admission for OR debridement of a right wrist wound and possible osteomyelitis. - Pt states that he was tearing up boards from an old porch and he is rebuilding and started having some pain in the right wrist on 04/28/17. He thinks there he may have possible been bit by a spider as he reports that there were two red dots on his skin where he was having pain and there were a lot of spiders where he was tearing up the boards. He was seen in the ED at [facility] on 04/30 and had an Xray which noted soft tissue swelling about the wrist and hand and was diagnosed with a right wrist strain and was prescribed a wrist brace and pain medication. He was sent to see a psych specialist, Dr. Ross, who sent him for an MRI of the wrist and prescribed Dilaudid. - Outpt MRI Wrist W/O Contrast (05/23/17) which noted severe focal 1st extensor compartment tendonitis and tenosynovitis. Apparent sinus tract extending to the lateral skin surface as well as adjacent distal radius bony edema and mild erosion. Findings are suspicious for infection. In the setting of infection, the bony findings would indicate osteomyelitis. - Two days ago he states that when he took the brace off a small piece of skin came off and the erythema, swelling and pain worsened. His wound opened up and has been draining purulent material for the last 2 days as well. - He was sent to Dr. Muniz's office and was recommended to go to the ED for IV anabiotics, ID consultation -On 05/25: s/p exploration, excisional debridement, wash first extensor compartment right wrist bone biospy distal radius right wrist infectious extensor tenosynovitis first extensor compartment right wrist partial tear of abductor pollicis longus and extensor pollicis brevis tendons soft distal radius metaphysis over the first extensor compartment - Surgical cxs (05/25) --> growing viridans strep. - Await bone biopsy results - Zosyn and Vancomycin stopped on 05/29 - ID recommending IV Rocephin x 6 weeks. - Stop the IV Dilaudid - PICC line placement - Pain control PRN - Had a very emanuel discussion with the pt regarding the PICC line and that it is only to be used for IV antibiotic administration. 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 - Wound care per Hand surgery. Bandaged changed by Dr. Alejandra on 05/27. (2) Diabetes mellitus type 1 ICD Codes: E10.9 - Type 1 diabetes mellitus without complications Status: Chronic Plan: - Pt is a type 1 diabetic since age 7. - He currently used NovoLog SSI and Lantus 30 units at bedtime. - He reports that for some time now he has issues with episodic hypoglycemia. - Pt is on Levemir 30 units HS and SSI. - Pts BS got as high as 779 at midnight and was given an additional 10 units of Novolog, pts BS then dropped to 45 units around 0500. BS has been more stable today Assessment and Plan Patient examined. Assessment and plan formulated with Patti Tirado PA-C. I agree with the above. - Case d/w ID, Dr. Camacho - No good PO option - Pt will require outpt Rocephin by PICC to complete 6 week course - Pt strongly warned that abuse of his PICC could lead to bacteremia, endocarditis, infection, and - anticipate d/c to home 05/31/17 Patti Tirado May 30, 2017 15:07 Cordell Golden DO May 31, 2017 01:23
--- NOTE | 2017-05-30 15:09 | HHI.FF ---
Infusion Therapy Location of Infusion Therapy: [facility] IV Infusion Order Patient Information Patient Weight 74.4 kg Diagnosis: (1) Acute osteomyelitis of right radius Coded Allergies: Sugars, Metabolically Active (Unverified Allergy, Severe, 05/25/17) acetaminophen (Unverified Allergy, Severe, 05/25/17) tramadol (Unverified Allergy, Severe, 05/25/17) atenolol (Verified Allergy, Intermediate, FLUSHED , 05/25/17) FLUSHED/RED hydrocodone (Verified Allergy, Intermediate, ITCHY, 05/25/17) lisinopril (Verified Allergy, Intermediate, FLUSHED , 05/25/17) FLUSHED/RED oxycodone (Verified Allergy, Intermediate, ITCHY, 05/25/17) propoxyphene (Unverified Adverse Reaction, Severe, SKIN GETS FLUSHED AND PT STS FEELS FUNNY, 05/25/17) Uncoded Allergies: creatine (Allergy, Unknown, 01/10/15) Administer Medication Ceftriaxone 2 grams IV q 24 hours Start Treatment: May 31, 2017 Stop Treatment: Jul 10, 2017 Additional Information Venous access: PICC Line Additional Instructions [x] Peripheral flush and dressing changes per protocol [x] Implanted port and central electrical lineworker: * Implanted port: 10 ml Normal Saline followed by 5 ml Heparin 100 units/ml Heparin flush after each use and monthly to maintain. [] May leave port accessed during therapy. [] May leave peripheral site accessed for duration of therapy. [x] If patient has SOB or respiratory distress, check oxygen saturation. If less than 90% or clinical signs of respiratory distress, administer oxygen at 2 L/min. via nasal cannula and notify physician. [x] Anaphylaxis/Reaction orders: * Stop infusion. * Keep IV line open with saline flush. * Notify physician. * Monitor vital signs every 15 minutes until symptoms resolve. * Check Oxygen saturation; Oxygen at 2 L/min. via nasal cannula if less than 90% or clinical signs of respiratory distress. * Administer diphenhydramine (Benadryl) 25 mg IV STAT, (unless patient has received as pre-med). May repeat once, if necessary. * Solu-Cortef 250 mg IVP over 30-60 seconds, use 100 mg vials for each dissolution. * Epinephrine (1mg/1 ml) 0.3 mg subcutaneously or IVP now with any signs of respiratory distress. * Check with physician for new additional pre-med orders if patient is re- challenged or re-treated. [x] May remove PICC line when treatment complete, after confirming with Physician. [x] If the patient is admitted to the hospital, the ED, or transferred via [facility] , complete transfer form including medication reconciliation order sheet. Laboratory Tests Weekly Labs: CBC w/diff, Creatinine, CRP, LFT's (Hepatic function test), SED Rate Liudmila Camacho MD May 30, 2017 15:09
[2017-05-30] MEDS ORDERED: CEFT2INJ IM (15:11)
[2017-05-30] MEDS ORDERED: EPIN1INJ21 IV PUSH (15:11)
[2017-05-30] MEDS ORDERED: SOLU250I IV PUSH (15:11)
[2017-05-30] MEDS ORDERED: EPIN1INJ21 SQ (15:11)
--- NOTE | 2017-05-30 15:15 | HHI.IDPN ---
Subjective Subjective Remarks doing well pain resolving no new problems afebrile Vanco level high 20.9 yday he grew out viridans strep 3/3 Antibiotics vancomycin Allergies: Coded Allergies: Sugars, Metabolically Active (Unverified Allergy, Severe, 05/25/17) acetaminophen (Unverified Allergy, Severe, 05/25/17) tramadol (Unverified Allergy, Severe, 05/25/17) atenolol (Verified Allergy, Intermediate, FLUSHED , 05/25/17) FLUSHED/RED hydrocodone (Verified Allergy, Intermediate, ITCHY, 05/25/17) lisinopril (Verified Allergy, Intermediate, FLUSHED , 05/25/17) FLUSHED/RED oxycodone (Verified Allergy, Intermediate, ITCHY, 05/25/17) propoxyphene (Unverified Adverse Reaction, Severe, SKIN GETS FLUSHED AND PT STS FEELS FUNNY, 05/25/17) Uncoded Allergies: creatine (Allergy, Unknown, 01/10/15) Objective . Vital Signs Date Time Temp Pulse Resp B/P (MAP) Pulse Ox O2 Delivery O2 Flow Rate FiO2 05/30/17 12:00 98.5 61 18 137/66 (89) 97 05/30/17 08:00 98.1 63 18 127/67 (87) 98 05/30/17 00:00 96.4 64 18 128/59 (82) 97 05/29/17 20:00 99.1 65 20 143/77 (99) 97 05/29/17 16:00 97.5 52 19 141/68 (92) 95 . Laboratory Tests Test 05/29/17 06:10 White Blood Count 8.9 TH/MM3 Red Blood Count 4.68 MIL/MM3 Hemoglobin 13.2 GM/DL Hematocrit 39.2 % Mean Corpuscular Volume 83.9 FL Mean Corpuscular Hemoglobin 28.3 PG Mean Corpuscular Hemoglobin Concent 33.7 % Red Cell Distribution Width 14.0 % Platelet Count 330 TH/MM3 Mean Platelet Volume 7.6 FL Neutrophils (%) (Auto) 60.1 % Lymphocytes (%) (Auto) 29.2 % Monocytes (%) (Auto) 9.4 % Eosinophils (%) (Auto) 0.8 % Basophils (%) (Auto) 0.5 % Neutrophils # (Auto) 5.3 TH/MM3 Lymphocytes # (Auto) 2.6 TH/MM3 Monocytes # (Auto) 0.8 TH/MM3 Eosinophils # (Auto) 0.1 TH/MM3 Basophils # (Auto) 0.0 TH/MM3 CBC Comment DIFF FINAL Differential Comment Laboratory Tests Test 05/29/17 06:10 05/29/17 23:04 Blood Urea Nitrogen 12 MG/DL Creatinine 1.01 MG/DL Random Glucose 145 MG/DL 779 MG/DL Calcium Level 8.5 MG/DL Magnesium Level 2.0 MG/DL Sodium Level 139 MEQ/L Potassium Level 4.1 MEQ/L Chloride Level 107 MEQ/L Carbon Dioxide Level 23.3 MEQ/L Anion Gap 9 MEQ/L Estimat Glomerular Filtration Rate 87 ML/MIN Imaging Last Impressions Chest X-Ray 05/25/17 1116 Signed Impressions: Service Date/Time: Sunday, May 25, 2017 11:50 - CONCLUSION: No acute cardiopulmonary process. Trever Myrick MD Physical Exam CONSTITUTIONAL/GENERAL: This is an adequately nourished patient, in no apparent distress. TUBES/LINES/DRAINS: SKIN: No jaundice, rashes, or lesions. Skin temperature appropriate. Not diaphoretic. Fairly fresh hyperpiggmented needle track martell on R a/c fossa CARDIOVASCULAR: Regular rate and rhythm without murmurs, gallops, or rubs. RESPIRATORY/CHEST: unlabored respirations. Clear to auscultation. GASTROINTESTINAL: Abdomen soft, non-tender, nondistended. MUSCULOSKELETAL: Extremities without clubbing, cyanosis, or edema. RUE over radial aspect of his wrist incision partially openes with shallow openings, draining serosang d/c odorless stitches i place, monimal erythema and edema NEUROLOGICAL: Awake and alert. Motor and sensory grossly within normal limits. Follows commands. Clear speech. Moves all extremities. PSYCHIATRIC: No obvious anxiety/depression. no apparent hallucinations or other psychotic thought process. Assessment & Plan Remarks Infectious tenosynovitis of right wrist extensor Acute osteomyelitis of right radius sp exploration, excisional debridement, wash first extensor compartment right wrist, bone biospy distal radius right wrist - clx with ciridans strep (mouth ernesto) 3/3 IVDU, by needle markes at least within last several months, but denies it, stes it was yrs ago Diabetes type I - CFTX 2 gm daily x 6 weeks - monitor creatinine, CBC and LFTs - anticipate 6 wks of IV abx of IV Rocephin - pt was counselled regartding inappropriate PICC use; - PICC line ordered and OPAT forms filled out OK to dc from ID standpoint dw Dr Chantel Camacho,Liudmila Meza MD May 30, 2017 15:15
[2017-05-30 16:00] VITALS: BP 129/63; PULSE 71; RESP 18; TEMP 97.1; O2SAT 97
[2017-05-30] MEDS ORDERED: SODIUM CHLORIDE 0.9% FLUSH 10 ML FLUSH IV FLUSH PRN (16:15)
--- NOTE | 2017-05-30 16:15 | HHI.PR ---
Subjective Remarks right wrist surgery follow up complains of mild pain denies any tingling or numbness denies fever on iv antibiotics patient getting PICC line Objective Vital Signs Date Time Temp Pulse Resp B/P (MAP) Pulse Ox O2 Delivery O2 Flow Rate FiO2 05/30/17 12:00 98.5 61 18 137/66 (89) 97 05/30/17 08:00 98.1 63 18 127/67 (87) 98 05/30/17 00:00 96.4 64 18 128/59 (82) 97 05/29/17 20:00 99.1 65 20 143/77 (99) 97 I/O 05/29/17 05/29/17 05/29/17 05/30/17 05/30/17 05/30/17 07:00 15:00 23:00 07:00 15:00 23:00 Intake Total 530 ml 960 ml 720 ml Output Total 600 ml Balance 530 ml 360 ml 720 ml Intake Oral 480 ml 960 ml 720 ml IV Total 50 ml Output Urine Total 600 ml # Voids 3 4 # Bowel Movements 1 1 1 right wrist: dressing in place two open wounds noted decreased swelling and erythema range of motion of thumb painful. no drainage cultures: Viridans streptococcus group Result Diagram: 05/29/17 0610 05/29/17 2304 Assessment and Plan Assessment and Plan 89 year old male s/p I and D, excisional debridement first extensor compartment and bone biopsy right distal radius pod 3 Plan: wound cleaned with hydrogen peroxide dry dressing applied continue iv antibiotics based on ID recommendations pathology pending daily dressing changes, clean the surrounding skin with alcohol wipes, wound with hydrogen peroxide and dry dressing. suture removal in two weeks Eduardo Card MD May 30, 2017 16:15
[2017-05-30] MEDS: cefTRIAXone INJ 2,000 MG in SODIUM CHLORIDE 0.9% INJ 100 ML IV SCH (17:59)
--- NOTE | 2017-05-30 18:47 | RADRPT ---
EXAM DATE/TIME: 05/30/2017 18:05 [facility] COMPARISON: CHEST SINGLE AP, May 25, 2017, 11:50. INDICATIONS : PICC line placement. MEDICAL HISTORY : None. SURGICAL HISTORY : None. ENCOUNTER: Initial ACUITY: 1 day PAIN SCORE: 0/10 LOCATION: Bilateral chest FINDINGS: Left arm PICC line is present in good position with tip overlying SVC. Lungs are focally clear. No pl eural effusion is evident. Cardiomediastinal contours are satisfactory for technique and projection. CONCLUSION: Satisfactory PICC line positioning Casper Chavez MD on May 30, 2017 at 18:45 Board Certified Radiologist. This report was verified electronically.
[2017-05-30 20:00] VITALS: BP 178/81; PULSE 74; RESP 18; TEMP 98; O2SAT 99
[2017-05-30] MEDS: INSULIN DETEMIR 100 UNITS/ML VIAL SQ SCH (20:25)
[2017-05-30] MEDS: ZOLPIDEM TARTRATE 5 MG TAB PO PRN (22:54)
[2017-05-31] VITALS: BP 131/66; PULSE 66; RESP 18; TEMP 97.2; O2SAT 97
[2017-05-31] MEDS: HYDROmorphone HCL 2 MG TAB PO PRN ×4 (02:17→14:08)
[2017-05-31] MEDS: INSULIN ASPART SUPPLEMENTAL SCALE SQ SCH ×3 (05:04→11:25)
[2017-05-31] MEDS ORDERED: PHARMACY ORDERED LAB ONE (05:45)
[2017-05-31 08:00] VITALS: BP 152/74; PULSE 62; RESP 19; TEMP 97.4; O2SAT 97
[2017-05-31] MEDS ORDERED: SODIUM CHLORIDE 0.9% FLUSH 10 ML FLUSH IV FLUSH SCH (09:00)
--- NOTE | 2017-05-31 10:21 | HHI.FF ---
Face to Face Verification Diagnosis: (1) Acute osteomyelitis of right radius (2) Diabetes mellitus type 1 (3) Infectious tenosynovitis of right wrist extensor Home Health Nursing Order: Wound care and dressing changes IV medication administration Instructions: Daily dressing changes, clean the surrounding skin with alcohol wipes, wound with hydrogen peroxide and dry dressing. I have seen patient Robert Vaughn on 05/31/17. My clinical findings support the need for the requested home health care services because: Infection w/ risk of complications Injectable med education/admin I certify that my clinical findings support that this patient is homebound because: Post-op weakness Patti Tirado May 31, 2017 10:21 Cordell Golden DO Jun 02, 2017 01:13
--- NOTE | 2017-05-31 10:32 | HHI.DS ---
Discharge Summary Admission Date May 25, 2017 at 11:48 Discharge Date: May 31, 2017 Admitting Diagnosis Right Radial Osteomyelitis (1) Acute osteomyelitis of right radius Diagnosis: Principal ICD Codes: M86.131 - Other acute osteomyelitis, right radius and ulna Status: Acute (2) Diabetes mellitus type 1 Diagnosis: Secondary ICD Codes: E10.9 - Type 1 diabetes mellitus without complications Status: Chronic Consultants Dr. Liudmila Camacho - ID Dr. Eduardo Card - Hand Surgery Brief History Mr. Vaughn is a pleasant 31 y/o WM with type 1 diabetes mellitus, hx of herniated discs and tobacco use. Pt presented to the ED from Dr. Mix's office for admission for OR debridement of a right wrist wound and possible osteomyelitis. Pt states that around 3 weeks ago he was tearing up boards from an old porch and he is rebuilding and started having some pain in the right wrist on 04/28/17. He thinks there he may have possible been bit by a spider as he reports that there were two red dots on his skin where he was having pain and there were a lot of spiders where he was tearing up the boards. He was seen in the ED at [facility] on 04/30 and had an Xray which noted soft tissue swelling about the wrist and hand and was diagnosed with a right wrist strain and was prescribed a wrist brace and pain medication. He was sent to see a sports clerk, Dr. Ross, who sent him for an MRI of the wrist and prescribed Dilaudid 2mg Q4-5H as the patient has had multiple adverse reactions to pain medications previously. He states that he had been wearing the brace as instructed but the pain and slight erythema was not getting better. Two days ago he states that when he took the brace off a small piece of skin came off and the erythema, swelling and pain worsened after that. Pts wound opened up and has been draining purulent material for the last 2 days as well. He had the MRI Wrist W/O Contrast (05/23/17) which noted severe focal 1st extensor compartment tendonitis and tenosynovitis. Apparent sinus tract extending to the lateral skin surface as well as adjacent distal radius bony edema and mild erosion. Findings are suspicious for infection. In the setting of infection, the bony findings would indicate osteomyelitis. He was sent to Dr. Muniz's office today and was recommended to go to the ED for IV anabiotics, ID consultation and is planned for surgical intervention this afternoon. Pts labs at admission noted WBC count 8.4. He is afebrile. CMP is pending. He had a culture taken from the wrist wound in the ED and blood cultures have been drawn. Pt reports that he has been a type 1 diabetic since age 7. He currently used NovoLog SSI and Lantus 30 units at bedtime. He reports that for some time now he has issues with episodic hypoglycemia. Yesterday he states that his blood sugar got as low as 23 and he had to receive IV dextrose. He has not lost consciousness previously due to hypoglycemia. His mother is present and states that this is typical for the type 1 diabetics in their family. Pt also reportedly was recently diagnosed with Hepatitis C, pt does not admit to his hx of Hepatitis C and does not admit to any hx of IVDA but he has noted track martell in both antecubital fossas. CBC/BMP: 05/29/17 0610 05/29/17 2304 Significant Findings Laboratory Tests Test 05/29/17 06:10 05/29/17 23:04 Monocytes (%) (Auto) 9.4 % (0.0-8.0) Random Glucose 145 MG/DL (74-106) 779 MG/DL (74-106) Estimat Glomerular Filtration Rate 87 ML/MIN (>89) Vancomycin Level Trough 20.9 MCG/ML (5.0-10.0) Imaging Last Impressions Chest X-Ray 05/30/17 0000 Signed Impressions: Service Date/Time: Tuesday, May 30, 2017 18:05 - CONCLUSION: Satisfactory PICC line positioning Casper Chavez MD PE at Discharge General: NAD, AAOx3 Chest: CTA Cardiac: Regular Abd: +BS, soft ND/NT Ext: Right wrist bandages are c/d/i Hospital Course Acute osteomyelitis of right radius - The patient is a 31 y/o WM with type 1 diabetes mellitus, hx of herniated discs and tobacco use. Reported recent hep c dx by family/pt denies - Pt presented to the ED from Dr. Muniz's office for admission for OR debridement of a right wrist wound and possible osteomyelitis. - Pt states that he was tearing up boards from an old porch and he is rebuilding and started having some pain in the right wrist on 04/28/17. He thinks there he may have possible been bit by a spider as he reports that there were two red dots on his skin where he was having pain and there were a lot of spiders where he was tearing up the boards. He was seen in the ED at [facility] on 04/30 and had an Xray which noted soft tissue swelling about the wrist and hand and was diagnosed with a right wrist strain and was prescribed a wrist brace and pain medication. He was sent to see a sports clerk, Dr. Ross, who sent him for an MRI of the wrist and prescribed Dilaudid. - Outpt MRI Wrist W/O Contrast (05/23/17) which noted severe focal 1st extensor compartment tendonitis and tenosynovitis. Apparent sinus tract extending to the lateral skin surface as well as adjacent distal radius bony edema and mild erosion. Findings are suspicious for infection. In the setting of infection, the bony findings would indicate osteomyelitis. - Two days prior to admission he stated that when he took the brace off a small piece of skin came off and the erythema, swelling and pain worsened. His wound opened up and has been draining purulent material for the last 2 days as well. - He was sent to Dr. Muniz's office and was recommended to go to the ED for IV anabiotics, ID consultation -On 05/25: s/p exploration, excisional debridement, wash first extensor compartment right wrist bone biopsy distal radius right wrist infectious extensor tenosynovitis first extensor compartment right wrist partial tear of abductor pollicis longus and extensor pollicis brevis tendons soft distal radius metaphysis over the first extensor compartment - Surgical cxs (05/25) --> growing viridans strep. - Bone biopsy results are still pending on the day of discharge - Pt was on Zosyn and Vancomycin initially which was stopped on 05/29 - ID recommending IV Rocephin x 6 weeks. - PICC line place on 05/30 - Pain control PRN - Had a very emanuel discussion with the pt regarding the PICC line and that it is only to be used for IV antibiotic administration. 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 - Wound care recommend by Hand surgery, daily dressing changes, clean the surrounding skin with alcohol wipes, wound with hydrogen peroxide and dry dressing. - Pt will need to followup with Dr. Alejandra for suture removal in two weeks - Bandage last changed on 05/30 Diabetes mellitus type 1 - Pt is a type 1 diabetic since age 7. - He currently used NovoLog SSI and Lantus 30 units at bedtime. - He reports that for some time now he has issues with episodic hypoglycemia. - Pt is on Levemir 30 units HS and SSI. - He has had a lot of fluctuations in his blood sugars during admission with significant highs and very low readings into the 30's. - He has previously had an insulin pump but was unable to keep it due to the jobs he had and being active in a lot of sports activities. - He is to followup with his PCP, Dr. Alvarez, for continued monitoring on his blood sugar readings. He will resume his previous home insulin regimen. - Pt may benefit from Endocrinology consultation as well as an outpt. Pt Condition on Discharge: Stable Discharge Disposition: Disch w/ Home Health Serv Discharge Instructions DIET: Follow Instructions for: Diabetic Diet Activities you can perform: See Additionl Instruction Other Activity Instructions: Dressing changes daily to every other day, clean the surrounding skin with alcohol wipes, wound with hydrogen peroxide and dry dressing. No heavy lifting over 5lbs with the right hand. Follow up Referrals: Hand Surgery - [address] Card PCP Follow-up - [address] Alvarez New Medications: Ceftriaxone Inj (Ceftriaxone Inj) 2 Gram Inj 2 GM IM Q24H for Infection for 40 Days, VIAL 0 Refills Epinephrine Inj (Epinephrine Inj) 1 Mg/Ml (1 Ml) Inj 0.3 MG IV PUSH ONCE PRN for ALLERGIC REACTION, #1 VIAL Epinephrine Inj (Epinephrine Inj) 1 Mg/Ml (1 Ml) Inj 0.3 MG SQ ONCE PRN for ALLERGIC REACTION, #1 VIAL Give with any signs of respiratory distress. Hydrocortisone Inj (Solu-Cortef Inj) 250 Mg/2 Ml Inj 250 MG IV PUSH ONCE PRN for ALLERGIC REACTION, #1 VIAL 0 Refills Give over 30-60 seconds. Continued Medications: Insulin Aspart Inj (Novolog Inj) 1,000 Unit/10 Ml Vial 0 SQ DIRECTED for Blood Sugar Management, ML 0 Refills Sliding Scale as directed. Insulin Glargine Inj (Lantus Inj) 1,000 Unit/10 Ml Vial 30 UNITS SQ HS for Blood Sugar Management, VIAL 0 Refills Additional Information Patient examined. Assessment and plan formulated with Patti Tirado PA-C. I agree with the above. Pt strongly cautioned that PICC is intended only for IV ABX. Poor care of PICC line or use for illicit drugs could lead to infection, bacteremia, endocarditis, or . Patti Tirado May 31, 2017 10:32 Cordell Golden DO Jun 02, 2017 01:15
[2017-05-31] MEDS ORDERED: DILA2TAB2 PO (11:13)
[2017-05-31] MEDS: cefTRIAXone INJ 2,000 MG in SODIUM CHLORIDE 0.9% INJ 100 ML IV SCH (14:08)
== END 2017-05-31 15:03 | disposition home health service (06) | DRG 479 ==
LOC: NEPC 10:45 → NEDA 11:48 → N07B 18:54
PROVIDERS: ADMIT Hospitalist; ATTEND Hospitalist
PROC: 0LB50ZZ Excision of Right Lower Arm and Wrist Tendon, Open Approach (ICD-10-PCS; 2017-05-25)
PROC: 0PBH0ZX Excision of Right Radius, Open Approach, Diagnostic (ICD-10-PCS; principal; 2017-05-25 16:12)
PROC: 02HV33Z Insertion of Infusion Device into Superior Vena Cava, Percutaneous Approach (ICD-10-PCS; 2017-05-30)
PROC: B548ZZA Ultrasonography of Superior Vena Cava, Guidance (ICD-10-PCS; 2017-05-30)
DX: M86.131 Other acute osteomyelitis, right radius and ulna (principal); E10.69 Type 1 diabetes mellitus with other specified complication; Z79.4 Long term (current) use of insulin; M65.131 Other infective (teno)synovitis, right wrist; F17.210 Nicotine dependence, cigarettes, uncomplicated; B19.20 Unspecified viral hepatitis C without hepatic coma; M54.9 Dorsalgia, unspecified
CPT/HCPCS: 36569; 71010; 76937; 80048; 80053; 80076; 80202; 82565; 82947; 82948; 83605; 83735; 85025; 85610; 85730; 87015; 87040; 87070; 87102; 87116; 87176; 87186; 87205; 87206; 88307; 88311; 93005; J0696; J1170; J1642; J1815; J2175; J2250; J2270; J2405; J2543; J3010; J3370; J7030; J7050

== ENCOUNTER 2017-06-10 05:54 | Emergency (ER) | payer OTHER ==
[~2017-06-10 05:54] MED LIST changes: +CEFT2INJ IM; -CIPR500T4 PO; +DILA2TAB2 PO; +EPIN1INJ21 IV PUSH; +EPIN1INJ21 SQ; -KETO10 PO; +LANTUS2P SQ; -NOVO7030P2 SQ; +NOVOLOGP2 SQ; -NOVORP2 SQ; +SOLU250I IV PUSH
[2017-06-10 05:57] VITALS: BP 145/72; PULSE 104; RESP 18; TEMP 98.7; O2SAT 98
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
[2017-06-10 06:44] LABS: AUTOMATED NEUTROPHIL # 9.4 TH/MM3 (1.8-7.7); BASOPHIL # 0.1 TH/MM3 (0-0.2); BASOPHIL % 0.8 % (0.0-2.0); EOSINOPHIL # 0.1 TH/MM3 (0-0.4); EOSINOPHIL % 0.8 % (0.0-4.0); HEMATOCRIT 35.8 % (39.0-51.0); HEMO FLAGS DIFF FINAL; LYMPH % 10.4 % (9.0-44.0); LYMPHOCYTE # 1.3 TH/MM3 (1.0-4.8); MEAN CELL VOLUME 84.5 FL (80.0-100.0); MEAN CORPUSCULAR HEMOGLOBIN 28.1 PG (27.0-34.0); MEAN CORPUSCULAR HGB CONC 33.3 % (32.0-36.0); MONO % 10.6 % (0.0-8.0); NEUT % 77.4 % (16.0-70.0); PLATELET COUNT 192 TH/MM3 (150-450); RED BLOOD COUNT 4.24 MIL/MM3 (4.50-5.90); RED CELL DISTRIBUTION WIDTH 15.2 % (11.6-17.2); WHITE BLOOD COUNT 12.1 TH/MM3 (4.0-11.0)
[2017-06-10 07:16] VITALS: BP 129/64; PULSE 88; RESP 16; O2SAT 99
[2017-06-10 07:33] LABS: BICARBONATE 28.3 MEQ/L (21.0-32.0); POTASSIUM 3.4 MEQ/L (3.5-5.1)
--- NOTE | 2017-06-10 08:12 | RADRPT ---
EXAM DATE/TIME: 06/10/2017 08:04 [facility] COMPARISON: CHEST SINGLE AP, May 30, 2017, 18:05. INDICATIONS : PICC line, Left side picc line dislodged. MEDICAL HISTORY : None. SURGICAL HISTORY : None. ENCOUNTER: Initial ACUITY: 1 day PAIN SCORE: 0/10 LOCATION: Bilateral chest FINDINGS: Portable AP view of the chest demonstrates a normal-sized cardiac silhouette. No effusion, consolidat ion, or pneumothorax is visualized. The bones and soft tissues demonstrate no acute abnormality. Lung s are underinflated. CONCLUSION: No PICC or central line is visualized. The lungs are underinflated but otherwise normal single view o f the chest. Casper Frances MD on June 10, 2017 at 8:10 Board Certified Radiologist. This report was verified electronically.
--- NOTE | 2017-06-10 08:48 | RADRPT ---
EXAM DATE/TIME: 06/10/2017 08:44 [facility] COMPARISON: CHEST SINGLE AP, June 10, 2017, 8:04. INDICATIONS : Evaluate PICC line placement MEDICAL HISTORY : Bone infection SURGICAL HISTORY : None. ENCOUNTER: Initial ACUITY: 1 day PAIN SCORE: 0/10 LOCATION: chest FINDINGS: Expiratory upright single view of the chest demonstrates a normal-sized cardiac silhouette. There is atelectasis at the lung bases related to the expiratory technique. No effusion, consolidation, or pne umothorax is visualized. Right upper cavity PICC is present with distal tip in the superior aspect of the SVC. CONCLUSION: Right upper extremity PICC distal tip in the superior aspect of the SVC. Casper Frances MD on June 10, 2017 at 8:46 Board Certified Radiologist. This report was verified electronically.
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
== END 2017-06-10 09:01 | disposition home or self-care (01) ==
LOC: NEPC 05:54
DX: E11.649 Type 2 diabetes mellitus with hypoglycemia without coma (principal); T82.524A Displacement of infusion catheter, initial encounter; Z79.4 Long term (current) use of insulin
CPT/HCPCS: 36569; 71010; 80048; 85025

== ENCOUNTER 2017-06-27 08:29 | Emergency (ER) | payer OTHER ==
[~2017-06-27] VITALS: Ht 172.7 cm; Wt 70.0 kg
[2017-06-27 08:31] VITALS: BP 137/72; PULSE 81; RESP 16; TEMP 97.7; O2SAT 99
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
== END 2017-06-27 11:18 | disposition home or self-care (01) ==
LOC: NEPE 08:29
DX: Z45.2 Encounter for adjustment and management of vascular access device (principal); M86.9 Osteomyelitis, unspecified; Z79.2 Long term (current) use of antibiotics; E11.9 Type 2 diabetes mellitus without complications
CPT/HCPCS: 99284

== ENCOUNTER 2017-06-27 14:02 | Day surgery (SDC) | payer OTHER ==
[2017-06-27 15:55] VITALS: BP 127/72; PULSE 78; RESP 18; TEMP 98.4; O2SAT 100
--- NOTE | 2017-06-27 16:25 | PD.RAD ---
Radiology Post PICC Prog Note Pre Procedure Diagnosis: (1) Infectious tenosynovitis of left wrist extensor Post Procedure Diagnosis: (1) Infectious tenosynovitis of right wrist extensor Procedure: Left PICC line placement Procedure Date: Jun 27, 2017 Supervising Radiologist Skuhdev Desai Proceduralist/Assist: Kell Espinal, RT(R)(), Marielle Watters, RT(R) Device Side: Left Sinhala: 4 single lumen cm: 40 Catheter: Power PICC Plan of Activity Patient to Unit: ROPU Patient Condition: Good PICC line can be used immediately Sukhdev Desai MD Jun 27, 2017 16:25
[2017-06-27] MEDS ORDERED: SODIUM CHLORIDE 0.9% FLUSH 10 ML FLUSH IVF PRN ×2 (16:30)
[2017-06-28] MEDS ORDERED: SODIUM CHLORIDE 0.9% FLUSH 10 ML FLUSH IVF SCH (09:00)
--- NOTE | 2017-06-29 10:30 | RADRPT ---
EXAM DATE/TIME: 06/27/2017 14:36 [facility] COMPARISON: No previous studies available for comparison. EXTERNAL COMPARISON : INDICATIONS : Patient presents with right wrist osteomyelitis. MEDICAL HISTORY : Diabetes Depression [place] SURGICAL HISTORY : Facial reconstruction Skin Graft on RT foot ENCOUNTER: Initial ACUITY: 1 month PAIN SCORE: 0/10 FLUORO TIME: 0.18 minutes IMAGE SERIES: 1 ACCESS: Left basilic vein DEVICE(S): 1.) 5 [place] dual lumen 40 cm Xcela Power PICC PROCEDURE : 1. Ultrasound guidance for venous catheterization. 2. Fluoroscopic guidance. 3. Ultrasound & fluoroscopic guided central venous Power PICC line placement. The risks, benefits and alternatives to the procedure were explained and verbal and written consent w as obtained. The site was prepped in sterile fashion. Full sterile technique was used, including ca p, mask, sterile gloves and gown and a large sterile sheet. Hand hygiene and 2% chlorhexidine prep w as utilized per protocol for cutaneous antisepsis with appropriate dry time for site. Sterile gel a nd sterile probe cover were utilized for ultrasound guidance. The skin and subcutaneous tissues wer e infiltrated with local anesthetic solution. Under direct ultrasound guidance, a suitable vein was accessed and a measuring guidewire was introduc ed and positioned in the central venous system. The ultrasound images depicting access guidance were saved and stored to PACS for permanent record. A Power Injectable PICC line was cut to prescribed length and introduced, positioned with tip at the cavoatrial junction level. The line was flushed and secured per protocol. CONCLUSION: 1. Uncomplicated central venous Power PICC line placement. 2. The PICC line can be used immediately. Sukhdev Desai MD on June 29, 2017 at 10:29 Board Certified Radiologist. This report was verified electronically.
== END 2017-06-27 15:55 | disposition home or self-care (01) ==
LOC: HROP 14:02 → HRIP 14:03 → HROP 15:55
PROVIDERS: ATTEND Emergency Medicine
DX: M86.131 Other acute osteomyelitis, right radius and ulna (principal); M65.132 Other infective (teno)synovitis, left wrist; E11.9 Type 2 diabetes mellitus without complications; Z79.4 Long term (current) use of insulin; Z79.2 Long term (current) use of antibiotics
CPT/HCPCS: 36569; 76937; 77001; C1751; J1642

== ENCOUNTER 2017-06-28 20:17 | Inpatient (IN) | payer OTHER ==
[~2017-06-28] VITALS: Ht 172.7 cm; Wt 63.8 kg
[2017-06-28] MEDS: PANTOPRAZOLE INJ 80 MG in SODIUM CHLORIDE 0.9% INJ 100 ML IV SCH (00:01)
[2017-06-28 20:24] VITALS: BP 138/77; PULSE 110; RESP 18; TEMP 103.3; O2SAT 97
[2017-06-28] MEDS ORDERED: PIPERACIL-TAZO 4.5 GM PREMIX 100 ML IV STA (20:35)
[2017-06-28] MEDS ORDERED: VANCOMYCIN INJ 1,000 MG in SODIUM CHLOR 0.9% 250 ML INJ 250 ML IV STA (20:35)
[2017-06-28] MEDS ORDERED: SODIUM CHLOR 0.9% 1000 ML INJ 400 ML IV ONE (20:35)
[2017-06-28] MEDS ORDERED: SODIUM CHLOR 0.9% 1000 ML INJ 1,000 ML IV ONE ×2 (20:35)
[2017-06-28] MEDS ORDERED: INSULIN HUMAN REGULAR 1,000 UNITS/10 ML VIAL IV PUSH ONE (20:45)
[2017-06-28] MEDS ORDERED: ONDANSETRON HCL 4 MG/2 ML VIAL IV PUSH ONE (20:45)
[2017-06-28] MEDS ORDERED: IBUPROFEN 800 MG TAB PO ONE (20:45)
[2017-06-28 20:50] LABS: BLOOD GAS VENOUS BASE EXCESS 4.4 mmol/L (-2-2); BLOOD GAS VENOUS HCO3 27 mmol/L (22-26); BLOOD GAS VENOUS O2 CONTENT 8.7 Vol % (9.0-17.0); BLOOD GAS VENOUS O2 HGB SAT 64 % (70-76); BLOOD GAS VENOUS PCO2 34 mmHg (44-48); BLOOD GAS VENOUS PO2 32 mmHg (35-40); BLOOD GAS VENOUS pH 7.52 (7.360-7.400); TEMP CORR TO 98.6
[2017-06-28 20:51] LABS: CRITICAL VALUE YES; DRAW SITE IV; FIO2 21 %; STAT YES
[2017-06-28 20:53] VITALS: PULSE 103; RESP 16; O2SAT 99
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
--- NOTE | 2017-06-28 21:16 | RADRPT ---
EXAM DATE/TIME: 06/28/2017 20:43 [facility] COMPARISON: No previous studies available for comparison. INDICATIONS : Fever MEDICAL HISTORY : Bone infection SURGICAL HISTORY : None. ENCOUNTER: Initial ACUITY: 1 day PAIN SCORE: Non-responsive. LOCATION: chest FINDINGS: A single view of the chest demonstrates the lungs to be symmetrically aerated without evidence of mas s, infiltrate or effusion. The cardiomediastinal contours are unremarkable. Osseous structures are intact. There is a left arm PICC now seen with tip at the atriocaval junction. CONCLUSION: No evidence of acute cardiopulmonary disease. Left arm PICC line tip is at the atriocaval junction. Casper Graham MD on June 28, 2017 at 21:14 Board Certified Radiologist. This report was verified electronically.
--- NOTE | 2017-06-28 21:20 | RADRPT ---
EXAM DATE/TIME: 06/28/2017 20:49 [facility] COMPARISON: No previous studies available for comparison. INDICATIONS : Inflammation right wrist MEDICAL HISTORY : Bone infection SURGICAL HISTORY : None. ENCOUNTER: Initial ACUITY: 2 weeks PAIN SCORE: Non-responsive. LOCATION: Right wrist FINDINGS: Soft tissue swelling seen lateral to the carpus and distal radius. There may be some soft tissue ulce ration. I don't see a radiopaque foreign body. Bones are intact. CONCLUSION: Nonspecific soft tissue swelling. No radiopaque foreign body or acute bony abnormality demonstrated. Casper Graham MD on June 28, 2017 at 21:18 Board Certified Radiologist. This report was verified electronically.
[2017-06-28 21:24] LABS: AUTOMATED NEUTROPHIL # 4.8 TH/MM3 (1.8-7.7); BASOPHIL % 0.5 % (0.0-2.0); HEMATOCRIT 29.9 % (39.0-51.0); HEMO FLAGS DIFF FINAL; LYMPH % 5.5 % (9.0-44.0); LYMPHOCYTE # 0.3 TH/MM3 (1.0-4.8); MEAN CELL VOLUME 83.8 FL (80.0-100.0); MEAN CORPUSCULAR HEMOGLOBIN 27.4 PG (27.0-34.0); MEAN CORPUSCULAR HGB CONC 32.7 % (32.0-36.0); MONO % 2.2 % (0.0-8.0); NEUT % 91.8 % (16.0-70.0); PLATELET COUNT 231 TH/MM3 (150-450); RED BLOOD COUNT 3.57 MIL/MM3 (4.50-5.90); RED CELL DISTRIBUTION WIDTH 14.3 % (11.6-17.2); WHITE BLOOD COUNT 5.2 TH/MM3 (4.0-11.0)
[2017-06-28 21:25] LABS: BLOOD, URINE NEG (NEG); GLUCOSE,URINE 1000 mg/dL (NEG); KETONE, URINE TRACE mg/dL (NEG); NITRITE,URINE NEG (NEG); URINE COLOR LIGHT-YELLOW (YELLW/STRAW)
[2017-06-28 21:29] LABS: COMMENT (UR) CATH-CULT NOT IND; CULTURE IF INDICATED CATH CULTURE NOT IND
[2017-06-28 21:42] LABS: APTT (PATIENT) 31.2 SEC (24.3-30.1); INTERNATIONAL NORMALIZED RATIO 1.2 RATIO; PROTHROMBIN TIME - PATIENT 12.8 SEC (9.8-11.6)
[2017-06-28 21:43] LABS: ALKALINE PHOSPHATASE 383 U/L (45-117); ALT (GPT) 69 U/L (12-78); ANION GAP 8 MEQ/L (5-15); AST (GOT) 111 U/L (15-37); BETA-HYDROXYBUTYRATE 0.36 MMOL/L (0.00-0.39); BICARBONATE 27.8 MEQ/L (21.0-32.0); BLOOD UREA NITROGEN 12 MG/DL (7-18); CHLORIDE 90 MEQ/L (98-107); CREATINE KINASE 101 U/L (39-308); GLOMERULAR FILTRATION RATE 64 ML/MIN (>89); MAGNESIUM 1.4 MG/DL (1.5-2.5); POTASSIUM 4.1 MEQ/L (3.5-5.1); SODIUM (NA) 126 MEQ/L (136-145); TOTAL BILIRUBIN ADULT 1.1 MG/DL (0.2-1.0)
[2017-06-28] MEDS ORDERED: PANTOPRAZOLE INJ 80 MG in SODIUM CHLORIDE 0.9% INJ 35 ML IV ONE (21:57)
[2017-06-28 22:00] LABS: CKMB LESS THAN 0.5 NG/ML (0.5-3.6)
[2017-06-28] MEDS ORDERED: Vancomycin Consult Pharmacy 1 EA OTHER SCH (22:15)
[2017-06-28] MEDS ORDERED: IOHEXOL 350 MG/ML 10 ML VIAL (for RAD DIAG) IVCONTRAST ONE (22:17)
[2017-06-28 22:26] VITALS: BP 129/66; PULSE 98; RESP 18; TEMP 100.9; O2SAT 100
[2017-06-28] MEDS ORDERED: DEXTROSE 50% IN WATER 50 ML VIAL(D50) IV PUSH PRN (22:30)
[2017-06-28] MEDS ORDERED: GLUCAGON 1 MG/ML VIAL OTHER PRN (22:30)
[2017-06-28 23:00] VITALS: BP 123/61; PULSE 86; RESP 18; TEMP 98.8; O2SAT 95
[2017-06-29] VITALS (8 sets, daily range): BP systolic 114–148; BP diastolic 61–78; PULSE 50–88; RESP 16–20; TEMP 95.6–98.2; O2SAT 95–99
[2017-06-29] MEDS: VANCOMYCIN 1,000 MG/NS 250 ML IV SCH ×4 (00:13→11:00)
[2017-06-29] MEDS: HYDROmorphone HCL PF 1 MG/ML VIAL IV PRN ×4 (02:56→15:05)
[2017-06-29 04:38] LABS: HEMATOCRIT 28.5 % (39.0-51.0); MEAN CELL VOLUME 83.8 FL (80.0-100.0); MEAN CORPUSCULAR HEMOGLOBIN 27.7 PG (27.0-34.0); PLATELET COUNT 176 TH/MM3 (150-450); RED CELL DISTRIBUTION WIDTH 14.4 % (11.6-17.2); WHITE BLOOD COUNT 5.7 TH/MM3 (4.0-11.0)
[2017-06-29 04:41] LABS: HEMO FLAGS AUTO DIFF
[2017-06-29] MEDS: PIPERACIL-TAZO 4.5 GM PREMIX 100 ML IV SCH ×3 (04:55→22:55)
[2017-06-29 05:40] LABS: BICARBONATE 23.8 MEQ/L (21.0-32.0); POTASSIUM 4.4 MEQ/L (3.5-5.1)
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
[2017-06-29 09:55] LABS: BANDS 9 % (0-6); NEUTROPHIL # MANUAL DIFF 5.2 TH/MM3 (1.8-7.7); POLYS (SEG NEUTROPHILS) 83 % (16-70); WBC DIFF SAMPLE 100
[2017-06-29 09:57] LABS: PLATELET ESTIMATE SMEAR NORMAL (NORMAL); PLATELET MORPHOLOGY NORMAL (NORMAL); SCAN/DIFF FINAL DIFF MANUAL
[2017-06-29] MEDS: INSULIN ASPART SUPPLEMENTAL SCALE SQ SCH ×4 (10:23→22:58)
--- NOTE | 2017-06-29 10:28 | EKG ---
Date Performed: 06/28/2017 Time Performed: 21:25:15 PTAGE: 31 years EKG: SINUS TACHYCARDIA ABNORMAL RHYTHM ECG PREVIOUS TRACING : 05/25/2017 12.45 Compared to prior tracing no significant change DOCTOR: Sukhdev Hannon Interpretating Date/Time 06/29/2017 10:21:35
[2017-06-29] MEDS: PANTOPRAZOLE INJ 80 MG in SODIUM CHLORIDE 0.9% INJ 100 ML IV SCH (12:16)
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
[2017-06-29] MEDS ORDERED: DIATRIZOATE MEGLUM/DIATRIZOATE SOD 9 ML CUP PO ONE (16:00)
[2017-06-29] MEDS ORDERED: HYDROmorphone HCL 2 MG TAB PO PRN (18:30)
[2017-06-29] MEDS ORDERED: PILL SPLITTER OTHER PRN (19:30)
--- NOTE | 2017-06-29 22:08 | RADRPT ---
EXAM DATE/TIME: 06/29/2017 21:42 [facility] COMPARISON: No previous studies available for comparison. INDICATIONS : Abdominal pain. IV CONTRAST: 100 cc Omnipaque 350 (iohexol) IV ORAL CONTRAST: Prescribed oral contrast ingested. RADIATION DOSE: 12.25 CTDIvol (mGy) MEDICAL HISTORY : None SURGICAL HISTORY : None. ENCOUNTER: Initial ACUITY: 1 day PAIN SCALE: 7/10 LOCATION: abdomen TECHNIQUE: Volumetric scanning of the abdomen and pelvis was performed. Using automated exposure control and ad justment of the mA and/or kV according to patient size, radiation dose was kept as low as reasonably achievable to obtain optimal diagnostic quality images. DICOM format image data is available electro nically for review and comparison. FINDINGS: Liver and spleen are enlarged. Liver is mild fatty infiltrated. There is an unusual appearance of the gallbladder, suggesting either several years elongated stones or wall thickening pericholecystic flu id or a combination of the 2. No duct stones or ductal dilatation demonstrated. Pancreas, adrenal glands and kidneys are of normal. No obstruction seen of the gastrointestinal tract. There is questionable mild wall thickening of the distal sigmoid colon and the rectum. There is a small free fluid in the pelvic cavity. I don't clearl y see the appendix but no focal inflammatory changes are seen in the right lower quadrant. Tiny pleural effusions are seen of both visualized lung bases. CONCLUSION: 1. Nonspecific hepatomegaly. 2. Stones and/or wall thickening/pericholecystic fluid of the gallbladder. 3. Possible mild distal colitis. Otherwise no perceptible acute inflammatory changes. 4. Small, nonspecific ascites. 5. Very small bilateral pleural effusions. Casper Graham MD on June 29, 2017 at 22:03 Board Certified Radiologist. This report was verified electronically.
[2017-06-29] MEDS: INSULIN DETEMIR 100 UNITS/ML VIAL SQ SCH (22:58)
[2017-06-30] VITALS: BP 143/83; PULSE 63; RESP 17; TEMP 97.9; O2SAT 98
[2017-06-30] MEDS: VANCOMYCIN 1,000 MG/NS 250 ML IV SCH ×6 (00:13→20:12)
[2017-06-30] MEDS: HYDROmorphone HCL 2 MG TAB PO PRN ×6 (03:04→22:24)
[2017-06-30] MEDS: PANTOPRAZOLE INJ 80 MG in SODIUM CHLORIDE 0.9% INJ 100 ML IV SCH (03:37)
[2017-06-30 04:00] VITALS: BP 149/89; PULSE 66; RESP 20; TEMP 97.5; O2SAT 99
[2017-06-30] MEDS: PIPERACIL-TAZO 4.5 GM PREMIX 100 ML IV SCH ×3 (06:42→20:13)
[2017-06-30 08:00] VITALS: BP 131/63; PULSE 61; RESP 16; TEMP 97.8; O2SAT 98
[2017-06-30] MEDS: INSULIN ASPART SUPPLEMENTAL SCALE SQ SCH ×4 (08:00→20:32)
[2017-06-30] MEDS: INSULIN DETEMIR 100 UNITS/ML VIAL SQ SCH ×2 (10:29→20:33)
[2017-06-30] MEDS ORDERED: PHARMACY ORDERED LAB ONE (10:45)
[2017-06-30 12:00] VITALS: BP 147/79; PULSE 70; RESP 17; TEMP 98.1; O2SAT 99
[2017-06-30 12:04] LABS: AUTOMATED NEUTROPHIL # 3.6 TH/MM3 (1.8-7.7); BASOPHIL % 0.4 % (0.0-2.0); EOSINOPHIL % 0.3 % (0.0-4.0); HEMATOCRIT 31.8 % (39.0-51.0); HEMO FLAGS DIFF FINAL; LYMPH % 13.9 % (9.0-44.0); LYMPHOCYTE # 0.7 TH/MM3 (1.0-4.8); MEAN CORPUSCULAR HEMOGLOBIN 27.8 PG (27.0-34.0); MEAN CORPUSCULAR HGB CONC 33.5 % (32.0-36.0); MONO % 8.7 % (0.0-8.0); NEUT % 76.7 % (16.0-70.0); PLATELET COUNT 216 TH/MM3 (150-450); RED BLOOD COUNT 3.83 MIL/MM3 (4.50-5.90); RED CELL DISTRIBUTION WIDTH 14.6 % (11.6-17.2); WHITE BLOOD COUNT 4.7 TH/MM3 (4.0-11.0)
--- NOTE | 2017-06-30 13:13 | HHI.PR ---
Subjective Remarks Patient ambulating about the room A&O x 3 reports improved pain control with Dilaudid 2 mg PO Objective Vitals Vital Signs Date Time Temp Pulse Resp B/P (MAP) Pulse Ox O2 Delivery O2 Flow Rate FiO2 06/30/17 12:00 98.1 70 17 147/79 (101) 99 06/30/17 08:00 97.8 61 16 131/63 (85) 98 06/30/17 04:00 97.5 66 20 149/89 (109) 99 06/30/17 00:00 97.9 63 17 143/83 (103) 98 06/29/17 20:00 97.7 57 18 140/68 (92) 99 06/29/17 19:50 Room Air 06/29/17 19:30 62 06/29/17 16:08 98.2 65 20 145/78 (100) 97 06/30/17 06/30/17 07/01/17 15:00 23:00 07:00 Intake Total 100 ml Balance 100 ml IV Total 100 ml Result Diagram: 06/30/17 1119 06/30/17 1119 Other Results Laboratory Tests Test 06/28/17 20:39 06/28/17 20:40 06/28/17 20:45 06/28/17 20:48 Blood Gas Puncture Site IV Blood Gas Patient Temperature 98.6 Venous Blood pH 7.52 Venous Blood Partial Pressure CO2 34 mmHg Venous Blood Partial Pressure O2 32 mmHg Venous Blood HCO3 27 mmol/L Venous Blood Oxygen Saturation 64 % Venous Blood Oxygen Content 8.7 Vol % Venous Blood Base Excess 4.4 mmol/L Blood Gas Inspired Oxygen 21 % Urine Color LIGHT-YELLOW Urine Turbidity CLEAR Urine pH 5.0 Urine Specific [place] 1.017 Urine Protein NEG mg/dL Urine Glucose (UA) 1000 mg/dL Urine Ketones TRACE mg/dL Urine Occult Blood NEG Urine Nitrite NEG Urine Bilirubin NEG Urine Urobilinogen LESS THAN 2.0 MG/DL Urine Leukocyte Esterase NEG Urine WBC LESS THAN 1 /hpf Microscopic Urinalysis Comment CATH-CULT NOT IND White Blood Count 5.2 TH/MM3 Red Blood Count 3.57 MIL/MM3 Hemoglobin 9.8 GM/DL Hematocrit 29.9 % Mean Corpuscular Volume 83.8 FL Mean Corpuscular Hemoglobin 27.4 PG Mean Corpuscular Hemoglobin Concent 32.7 % Red Cell Distribution Width 14.3 % Platelet Count 231 TH/MM3 Mean Platelet Volume 7.5 FL Neutrophils (%) (Auto) 91.8 % Lymphocytes (%) (Auto) 5.5 % Monocytes (%) (Auto) 2.2 % Eosinophils (%) (Auto) 0.0 % Basophils (%) (Auto) 0.5 % Neutrophils # (Auto) 4.8 TH/MM3 Lymphocytes # (Auto) 0.3 TH/MM3 Monocytes # (Auto) 0.1 TH/MM3 Eosinophils # (Auto) 0.0 TH/MM3 Basophils # (Auto) 0.0 TH/MM3 CBC Comment DIFF FINAL Differential Comment Prothrombin Time 12.8 SEC Prothromb Time International Ratio 1.2 RATIO Activated Partial Thromboplast Time 31.2 SEC Blood Urea Nitrogen 12 MG/DL Creatinine 1.32 MG/DL Random Glucose 491 MG/DL Total Protein 6.8 GM/DL Albumin 2.7 GM/DL Calcium Level 8.0 MG/DL Phosphorus Level 1.1 MG/DL Magnesium Level 1.4 MG/DL Alkaline Phosphatase 383 U/L Aspartate Amino Transf (AST/SGOT) 111 U/L Alanine Aminotransferase (ALT/SGPT) 69 U/L Total Bilirubin 1.1 MG/DL Sodium Level 126 MEQ/L Potassium Level 4.1 MEQ/L Chloride Level 90 MEQ/L Carbon Dioxide Level 27.8 MEQ/L Anion Gap 8 MEQ/L Estimat Glomerular Filtration Rate 64 ML/MIN Total Creatine Kinase 101 U/L Creatine Kinase MB LESS THAN 0.5 NG/ML Troponin I LESS THAN 0.02 NG/ML Lipase 24 U/L B-Hydroxybutyrate 0.36 MMOL/L Lactic Acid Level 1.8 mmol/L Test 06/29/17 04:20 06/29/17 09:45 06/30/17 11:19 White Blood Count 5.7 TH/MM3 4.7 TH/MM3 Red Blood Count 3.40 MIL/MM3 3.83 MIL/MM3 Hemoglobin 9.4 GM/DL 10.6 GM/DL Hematocrit 28.5 % 31.8 % Mean Corpuscular Volume 83.8 FL 83.0 FL Mean Corpuscular Hemoglobin 27.7 PG 27.8 PG Mean Corpuscular Hemoglobin Concent 33.0 % 33.5 % Red Cell Distribution Width 14.4 % 14.6 % Platelet Count 176 TH/MM3 216 TH/MM3 Mean Platelet Volume 7.4 FL 7.6 FL CBC Comment AUTO DIFF DIFF FINAL Differential Total Cells Counted 100 Neutrophils % (Manual) 83 % Band Neutrophils % 9 % Lymphocytes % 6 % Monocytes % 2 % Neutrophils # (Manual) 5.2 TH/MM3 Differential Comment FINAL DIFF MANUAL Platelet Estimate NORMAL Platelet Morphology Comment NORMAL Red Cell Morphology Comment NORMAL Blood Urea Nitrogen 11 MG/DL Creatinine 0.95 MG/DL 0.78 MG/DL Random Glucose 314 MG/DL Calcium Level 7.5 MG/DL Sodium Level 136 MEQ/L Potassium Level 4.4 MEQ/L Chloride Level 105 MEQ/L Carbon Dioxide Level 23.8 MEQ/L Anion Gap 7 MEQ/L Estimat Glomerular Filtration Rate 94 ML/MIN 118 ML/MIN Urine Opiates Screen NEG Urine Barbiturates Screen NEG Urine Amphetamines Screen NEG Urine Benzodiazepines Screen NEG Urine Cocaine Screen POS Urine Cannabinoids Screen NEG Neutrophils (%) (Auto) 76.7 % Lymphocytes (%) (Auto) 13.9 % Monocytes (%) (Auto) 8.7 % Eosinophils (%) (Auto) 0.3 % Basophils (%) (Auto) 0.4 % Neutrophils # (Auto) 3.6 TH/MM3 Lymphocytes # (Auto) 0.7 TH/MM3 Monocytes # (Auto) 0.4 TH/MM3 Eosinophils # (Auto) 0.0 TH/MM3 Basophils # (Auto) 0.0 TH/MM3 Vancomycin Level Trough 8.4 MCG/ML Imaging Last Impressions Chest X-Ray 06/28/172034 Signed Impressions: Service Date/Time: June 20:43 - CONCLUSION: No evidence of acute cardiopulmonary disease. Left arm PICC line tip is at the atriocaval junction. Casper Graham MD Wrist X-Ray 06/28/17 0000 Signed Impressions: Service Date/Time: June 20:49 - CONCLUSION: Nonspecific soft tissue swelling. No radiopaque foreign body or acute bony abnormality demonstrated. Casper Graham MD Objective Remarks GENERAL: a well-nourished, well-developed patient, SKIN: healing incision right wrist with sutures intact. Multiple track martell and scarring bilateral upper and lower extremities. CARDIO: Regular. RESP: CTA bilaterally. No wheezes, rales, or rhonchi. ABD: +BS, soft, non-tender, nondistended. NEURO: Awake and alert. Motor and sensory grossly within normal limits. Normal speech. A/P Problem List: (1) Infectious tenosynovitis of right wrist extensor ICD Codes: M65.131 - Other infective (teno)synovitis, right wrist Plan: Bacteremia Patient is S/P Exploration, excisional debridement first extensor compartment right wrist and bone biopsy distal radius right wrist, on 05/25/[address] Card Patient was DC 'd home with PICC line and IV Rocephin returned to the ER 06/28/17 with c/o X ray right wrist reviewed and reveals: Patient stated on IV Vancomycin and Zosyn Consult placed to ID recommends continue Zosyn, DC vancomycin, remove PICC wound culture obtained and pending Blood culture positive for GNR and Enterobacter Species repeat blood cultures pending 2D echocardiogram ordered and pending supportive care DM type 1 hypoglycemia Patient did not take insulin on the day prior to admission started on SSI covered with accuchecks ACHS Continue Levemir 15 Units SQ BID Anemia Possible GI bleed Patient with anemia hemoglobin of 9.7 on admission repeat hgb 10.6 (06/30) patient's hgb trend between 11 and 13 occult stool positive patient started on Protonix drip in the ER Consult placed to GI, appreciate assistance Diabetic diet NPO after midnight Sunday continue to monitor H&H Plan for EGD/Colonoscopy on Sunday Substance abuse Toxicology screen positive for Cocaine Abdominal pain 06/29 pm- resolved CT abd/pelvis 06/29) reviewed and reveals: nonspecific hepatomegaly. Stones and or wall thickening/pericholecystic fluid of the gallbladder. possible mild distal colitis. Small, nonspecific ascites. very small bilateral pleural effusions. reports abdminal pain improved Recent osteomyelitis of right wrist 05/25: s/p exploration, excisional debridement, wash first extensor compartment right wrist bone biopsy distal radius right wrist infectious extensor tenosynovitis first extensor compartment right wrist partial tear of abductor pollicis longus and extensor pollicis brevis tendons soft distal radius metaphysis over the first extensor compartment Discussed with Dr. Kyaw quezada to have nurse remove sutures DVT prophylaxis SCDs will avoid chemical DVT prevention due to suspected GI bleed (2) Diabetes mellitus type 1 ICD Codes: E10.9 - Type 1 diabetes mellitus without complications Status: Chronic (3) Hyperglycemia ICD Codes: R73.9 - Hyperglycemia, unspecified Status: Acute (4) GI bleed ICD Codes: K92.2 - Gastrointestinal hemorrhage, unspecified Status: Acute Assessment and Plan Patient examined. Assessment and plan formulated with Gloria Duarte PA-C. I agree with the above. Problem Qualifiers (1) GI bleed: Qualified Codes: K92.2 - Gastrointestinal hemorrhage, unspecified Gloria Duarte Jun 30, 2017 13:13 Cordell Golden DO Jul 01, 2017 23:48
--- NOTE | 2017-06-30 14:06 | ECHRPT ---
Indication: veg CONCLUSIONS The left ventricular systolic function is normal with an estimated ejection fraction in the range of 55-60%. Normal left ventricular size. Trace mitral valve regurgitation. No aortic valve regurgitation. There is mild tricuspid valve regurgitation. The estimated pulmonary arterial pressure is 34.6 mmHg. No vegetation seen BP: / HR: Rhythm: MEASUREMENTS (Male / Female) Normal Values Technical Quality: 2D ECHO LV Diastolic Diameter PLAX 4.4 cm 4.2 - 5.9 / 3.9 - 5.3 cm LV Systolic Diameter PLAX 3.3 cm IVS Diastolic Thickness 1.1 cm 0.6 - 1.0 / 0.6 - 0.9 cm LVPW Diastolic Thickness 1.0 cm 0.6 - 1.0 / 0.6 - 0.9 cm LV Relative Wall Thickness 0.5 RV Internal Dim ED PLAX 2.8 cm DOPPLER TR Peak Velocity 248.0 cm/s TR Peak Gradient 24.6 mmHg Right Atrial Pressure 10.0 mmHg Pulmonary Artery Systolic Pressu 34.6 mmHg Right Ventricular Systolic Press 34.6 mmHg FINDINGS LEFT VENTRICLE The left ventricular systolic function is normal with an estimated ejection fraction in the range of 55-60%. Normal left ventricular size. RIGHT VENTRICLE Normal right ventricular size and systolic function. LEFT ATRIUM The left atrial size is normal. RIGHT ATRIUM The right atrial size is normal. ATRIAL SEPTUM Normal atrial septal thickness without atrial level shunting by limited color doppler interrogation. AORTA The aortic root and proximal ascending aorta are normal in size on limited imaging. MITRAL VALVE Structurally normal mitral valve. Trace mitral valve regurgitation. AORTIC VALVE Trileaflet aortic valve. No aortic valve regurgitation. TRICUSPID VALVE Structurally normal tricuspid valve. There is mild tricuspid valve regurgitation. The estimated pulmonary arterial pressure is 34.6 mmHg. PULMONARY VALVE No pulmonary valve regurgitation or stenosis. VESSELS The inferior vena cava is normal in size. PERICARDIUM No pericardial effusion. Jeferson Krueger MD (Electronically Signed) Final Date:30 June 2017 14:05
[2017-06-30] MEDS: PANTOPRAZOLE SODIUM 40 MG VIAL IV PUSH SCH (14:29)
--- NOTE | 2017-06-30 15:03 | HHI.GIFU ---
Subjective Remarks Lying in bed. Reports lower abdominal pain, worse after eating. Denies nausea or vomiting. Has loose stool today. (Asha Whitley) Objective Vitals I&O Vital Signs Date Time Temp Pulse Resp B/P (MAP) Pulse Ox O2 Delivery O2 Flow Rate FiO2 06/30/17 12:00 98.1 70 17 147/79 (101) 99 06/30/17 08:00 97.8 61 16 131/63 (85) 98 06/30/17 04:00 97.5 66 20 149/89 (109) 99 06/30/17 00:00 97.9 63 17 143/83 (103) 98 06/29/17 20:00 97.7 57 18 140/68 (92) 99 06/29/17 19:50 Room Air 06/29/17 19:30 62 06/29/17 16:08 98.2 65 20 145/78 (100) 97 I/O 06/29/17 06/29/17 06/29/17 06/30/17 06/30/17 06/30/17 07:00 15:00 23:00 07:00 15:00 23:00 Intake Total 590 ml 420 ml 1000 ml 100 ml Output Total 1300 ml 700 ml 300 ml Balance -710 ml -280 ml 700 ml 100 ml Intake Oral 240 ml 420 ml 650 ml IV Total 350 ml 350 ml 100 ml Output Urine Total 1300 ml 700 ml 300 ml # Voids 2 # Bowel Movements 0 1 Laboratory Laboratory Tests Test 06/30/17 11:19 White Blood Count 4.7 Red Blood Count 3.83 Hemoglobin 10.6 Hematocrit 31.8 Mean Corpuscular Volume 83.0 Mean Corpuscular Hemoglobin 27.8 Mean Corpuscular Hemoglobin Concent 33.5 Red Cell Distribution Width 14.6 Platelet Count 216 Mean Platelet Volume 7.6 Neutrophils (%) (Auto) 76.7 Lymphocytes (%) (Auto) 13.9 Monocytes (%) (Auto) 8.7 Eosinophils (%) (Auto) 0.3 Basophils (%) (Auto) 0.4 Neutrophils # (Auto) 3.6 Lymphocytes # (Auto) 0.7 Monocytes # (Auto) 0.4 Eosinophils # (Auto) 0.0 Basophils # (Auto) 0.0 CBC Comment DIFF FINAL Differential Comment Creatinine 0.78 Estimat Glomerular Filtration Rate 118 Vancomycin Level Trough 8.4 Date/Time Source Procedure Growth Status 06/30/17 11:24 Blood Peripheral Aerobic Blood Culture Pending Received 06/30/17 11:24 Blood Peripheral Anaerobic Blood Culture Pending Received 06/29/17 18:00 Catheter Tip Other Wound Culture Pending Received Imaging Last Impressions Abdomen/Pelvis CT 06/29/17 0000 Signed Impressions: Service Date/Time: Thursday, June 29, 2017 21:42 - CONCLUSION: 1. Nonspecific hepatomegaly. 2. Stones and/or wall thickening/pericholecystic fluid of the gallbladder. 3. Possible mild distal colitis. Otherwise no perceptible acute inflammatory changes. 4. Small, nonspecific ascites. 5. Very small bilateral pleural effusions. Casper Graham MD Chest X-Ray 06/28/172034 Signed Impressions: Service Date/Time: June 20:43 - CONCLUSION: No evidence of acute cardiopulmonary disease. Left arm PICC line tip is at the atriocaval junction. Casper Graham MD Wrist X-Ray 06/28/17 0000 Signed Impressions: Service Date/Time: June 20:49 - CONCLUSION: Nonspecific soft tissue swelling. No radiopaque foreign body or acute bony abnormality demonstrated. Casper Graham MD Physical Exam HEENT: Normocephalic; atraumatic; no jaundice. NECK: Neck is supple CHEST: CTA CARDIAC: RRR with no murmur gallop or rubs. ABDOMEN: Soft, nondistended, mild tenderness to palpation at lower abdominal area; no hepatosplenomegaly; bowel sounds are present. EXTREMITIES: No clubbing, cyanosis, or edema. SKIN: Normal; no rash; no jaundice. 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 (Asha Whitley) Assessment and Plan Plan ASSESSMENT - Anemia, heme pos stool. Hemoglobin 9.7 on admission, was 11.9 on 06/10. HH 10.6 /31.8 (06/30). No obvious bleeding. - Abdomen pain, lower abdominal pain, intermittent, worse with BM and after he eats. Pain has been present for [address] Abdomen/Pelvis (06/30/17)-- - Elevated LFTs - on admission T. peggy 1.1, AST 111, ALT 69, ALP 383, elevated from previous admission in May Per EMR, recent dx of hep C, hx substance abuse and IV drug use. +Cocaine on toxicology screen. Hepatitis Panel pending PLAN - Await hepatitis panel results - EGD/colonoscopy Sunday - Clear liquids Sunday - Obtain consents - NPO after midnight Sunday night - GoLytely prep Sunday - Supportive care - Further recommendations to follow based on results of above. Patient seen and examined by Dr. Rasmussen and this note is written on his behalf. (Asha Whitley) Plan Patient was seen and examined, agree with above-noted, await hepatitis profile and will plan colon EGD Sunday (John Rasmussen MD) Asha Whitley Jun 30, 2017 15:03 John Rasmussen MD Jul 01, 2017 08:51
[2017-06-30 16:00] VITALS: BP 145/82; PULSE 66; RESP 17; TEMP 98.1; O2SAT 98
[2017-06-30 20:00] VITALS: BP 146/71; PULSE 66; RESP 18; TEMP 98.7; O2SAT 98
[2017-06-30] MEDS: ZOLPIDEM TARTRATE 5 MG TAB PO PRN (21:28)
[2017-07-01] VITALS: BP 139/83; PULSE 54; RESP 20; TEMP 98.3; O2SAT 99
[2017-07-01] MEDS: HYDROmorphone HCL 2 MG TAB PO PRN ×4 (02:35→20:28)
[2017-07-01] MEDS: PANTOPRAZOLE SODIUM 40 MG VIAL IV PUSH SCH ×2 (02:58→12:46)
[2017-07-01 04:00] VITALS: BP 153/80; PULSE 65; RESP 20; TEMP 98.1; O2SAT 99
[2017-07-01] MEDS: VANCOMYCIN 1,000 MG/NS 250 ML IV SCH ×6 (04:24→20:29)
[2017-07-01] MEDS: PIPERACIL-TAZO 4.5 GM PREMIX 100 ML IV SCH ×3 (05:22→20:30)
[2017-07-01] MEDS: INSULIN ASPART SUPPLEMENTAL SCALE SQ SCH ×4 (08:00→20:32)
[2017-07-01 08:08] VITALS: BP 130/63; PULSE 63; RESP 18; TEMP 97.9; O2SAT 99
[2017-07-01] MEDS: INSULIN DETEMIR 100 UNITS/ML VIAL SQ SCH ×2 (09:30→20:32)
--- NOTE | 2017-07-01 11:56 | HHI.GIFU ---
Subjective Remarks Resting in bed. Mild mid abdominal discomfort. No n/v. Afebrile. States he had pancreatitis about 10 years ago, denies any ETOH use. (Dona Baird) Objective Vitals I&O Vital Signs Date Time Temp Pulse Resp B/P (MAP) Pulse Ox O2 Delivery O2 Flow Rate FiO2 07/01/17 10:00 Room Air 07/01/17 08:08 97.9 63 18 130/63 (85) 99 07/01/17 04:00 98.1 65 20 153/80 (104) 99 07/01/17 00:00 98.3 54 20 139/83 (101) 99 06/30/17 20:00 98.7 66 18 146/71 (96) 98 06/30/17 20:00 Room Air 06/30/17 16:00 98.1 66 17 145/82 (103) 98 06/30/17 12:00 98.1 70 17 147/79 (101) 99 I/O 06/30/17 06/30/17 06/30/17 07/01/17 07/01/17 07/01/17 07:00 15:00 23:00 07:00 15:00 23:00 Intake Total 1000 ml 450 ml 1539 ml 345 ml Output Total 300 ml Balance 700 ml 450 ml 1539 ml 345 ml Intake Oral 650 ml 1200 ml IV Total 350 ml 450 ml 339 ml 345 ml Output Urine Total 300 ml # Voids 2 6 # Bowel Movements 2 Laboratory Date/Time Source Procedure Growth Status 06/30/17 11:24 Blood Peripheral Aerobic Blood Culture - Preliminary NO GROWTH IN 1 DAY Resulted 06/30/17 11:24 Blood Peripheral Anaerobic Blood Culture - Preliminary NO GROWTH IN 1 DAY Resulted 06/29/17 18:00 Catheter Tip Other Wound Culture - Final NO GROWTH IN 48 HOURS. Complete Imaging Last Impressions Abdomen/Pelvis CT 06/29/17 0000 Signed Impressions: Service Date/Time: Thursday, June 29, 2017 21:42 - CONCLUSION: 1. Nonspecific hepatomegaly. 2. Stones and/or wall thickening/pericholecystic fluid of the gallbladder. 3. Possible mild distal colitis. Otherwise no perceptible acute inflammatory changes. 4. Small, nonspecific ascites. 5. Very small bilateral pleural effusions. Casper Graham MD Chest X-Ray 06/28/172034 Signed Impressions: Service Date/Time: June 20:43 - CONCLUSION: No evidence of acute cardiopulmonary disease. Left arm PICC line tip is at the atriocaval junction. Casper Graham MD Wrist X-Ray 06/28/17 0000 Signed Impressions: Service Date/Time: June 20:49 - CONCLUSION: Nonspecific soft tissue swelling. No radiopaque foreign body or acute bony abnormality demonstrated. Casper Graham MD Physical Exam HEENT: Normocephalic; atraumatic; no jaundice. NECK: Neck is supple CHEST: CTA CARDIAC: RRR with no murmur gallop or rubs. ABDOMEN: Soft, nondistended, mild tenderness mid abdominal area; no hepatosplenomegaly; bowel sounds are present. EXTREMITIES: No clubbing, cyanosis, or edema. SKIN: Normal; no rash; no jaundice. 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 (Dona Baird) Assessment and Plan Plan ASSESSMENT - Anemia, heme pos stool. HH 10.6/31.8. Plan for egd/colonoscopy in am. - Abdomen pain, lower abdominal pain, intermittent, worse with BM and after he eats. Pain has been present for [address] Scan abdomen and pelvis (06/29/17)---> Nonspecific hepatomegaly, stones and/ or wall thickening/pericholecystic fluid of the gallbladder, possible mild distal colitis, otherwise no perceptible acute inflammatory change, small, nonspecific ascites, very small bilateral pleural effusions. ? Mild distal colitis, ? gb etiology. Plan for egd/colonoscopy in am. Will get RUQ us to better evaluate gb. - ? Colitis, mild distal. Colonoscopy in am. - Elevated LFTs. Denies ETOH use. + Cocaine on toxicology screen. CT as above. Hepatitis profile pending. Will get US to further evaluate gb. Liver workup. T. Bili 1.1, AST 111, ALT 69, ALk PHosph 383. - Abnormal imaging regarding the GB on CT, questionable stones and/or wall thickening/pericholecystic fluid. Of note, states he had pancreatitis 10 years ago and swears he does not drink ETOH. - FRANCISCO, per attending. - Bacteremia with enterobacter cloacae. Pt had infectious tenosynovitis of right wrist extensor, s/p exploration, excisional debridement first extensor compartment right wrist and bone biopsy distal radius right wrist, on 05/25/[address] Card, was discharged home with PICC line/IV Abx. Sean. - DM, Type I, PSA per attending. PLAN - Plan for EGD/Colonoscopy on Sunday - Obtain consents - Clear liquids - NPO after MN - Golytely prep - Await hepatitis profile - RUQ US to better evaluate gb (questionable stones and/or pericholecystic fluid /wall thickening on CT) - Liver workup - Abx per attending - Further recommendations to follow based on results of above. - Patient seen and examined by Dr. Rasmussen and this note is written on his behalf. (Dona Baird) Plan Patient was seen and examined, agree with above note, patient will get: EGD tomorrow we will prep tonight (John Rasmussen MD) Dona Baird Jul 01, 2017 11:56 John Rasmussen MD Jul 01, 2017 17:43
[2017-07-01 12:08] VITALS: BP 153/82; PULSE 56; RESP 18; TEMP 98.8; O2SAT 98
[2017-07-01] MEDS ORDERED: PEG (High)/E-LYTE SOLN 4000 ML BTL PO ONE (16:00)
[2017-07-01 16:08] VITALS: BP 153/82; PULSE 56; RESP 18; TEMP 98.8; O2SAT 98
--- NOTE | 2017-07-01 16:51 | HHI.PR ---
Subjective Remarks Pt c/o RUQ abdominal pain Pt c/o poor PO intake. Objective Vitals Vital Signs Date Time Temp Pulse Resp B/P (MAP) Pulse Ox O2 Delivery O2 Flow Rate FiO2 07/01/17 12:08 98.8 56 18 153/82 (105) 98 07/01/17 10:00 Room Air 07/01/17 08:08 97.9 63 18 130/63 (85) 99 07/01/17 04:00 98.1 65 20 153/80 (104) 99 07/01/17 00:00 98.3 54 20 139/83 (101) 99 06/30/17 20:00 98.7 66 18 146/71 (96) 98 06/30/17 20:00 Room Air Result Diagram: 06/30/17 1119 07/01/17 1440 Imaging Last Impressions Abdomen/Pelvis CT 06/29/17 0000 Signed Impressions: Service Date/Time: Thursday, June 29, 2017 21:42 - CONCLUSION: 1. Nonspecific hepatomegaly. 2. Stones and/or wall thickening/pericholecystic fluid of the gallbladder. 3. Possible mild distal colitis. Otherwise no perceptible acute inflammatory changes. 4. Small, nonspecific ascites. 5. Very small bilateral pleural effusions. Casper Graham MD Chest X-Ray 06/28/172034 Signed Impressions: Service Date/Time: June 20:43 - CONCLUSION: No evidence of acute cardiopulmonary disease. Left arm PICC line tip is at the atriocaval junction. Casper Graham MD Wrist X-Ray 06/28/17 0000 Signed Impressions: Service Date/Time: June 20:49 - CONCLUSION: Nonspecific soft tissue swelling. No radiopaque foreign body or acute bony abnormality demonstrated. Casper Graham MD Objective Remarks GENERAL: a well-nourished, well-developed patient, SKIN: healing incision right wrist. Multiple track martell and scarring bilateral upper and lower extremities. CARDIO: Regular. RESP: CTA bilaterally. No wheezes, rales, or rhonchi. ABD: +BS, soft, non-tender, nondistended. NEURO: Awake and alert. Motor and sensory grossly within normal limits. Normal speech. A/P Problem List: (1) Infectious tenosynovitis of right wrist extensor ICD Codes: M65.131 - Other infective (teno)synovitis, right wrist Plan: Bacteremia Patient is S/P Exploration, excisional debridement first extensor compartment right wrist and bone biopsy distal radius right wrist, on 05/25/[address] Card Patient was DC 'd home with PICC line and IV Rocephin returned to the ER 06/28/17 with c/o X ray right wrist reviewed and reveals: Patient stated on IV Vancomycin and Zosyn Consult placed to ID recommends continue Zosyn, DC vancomycin, remove PICC wound culture (06/28/17) --> Enterobacter, Stenotrophomonas Blood culture positive for GNR and Enterobacter Species Repeat Blood Cx (06/30) --> NO growth to date 2D echocardiogram (06/30) --> NO vegetation supportive care - will discuss case further with ID (07/02) - can cannot be discharge to home with IV access. Pt misused PICC line. - Consider discharge to SNF for course of antibiotic therapy, will d/w FHCP Case Mgmt 07/02 DM type 1 - levemir 10 units qPM & 15 units qAM - SSI Anemia Possible GI bleed - comgmt with GI Patient with anemia hemoglobin of 9.7 on admission repeat hgb 10.6 (06/30) patient's hgb trend between 11 and 13 occult stool positive patient started on Protonix drip in the ER, changed BID EGD/Colonoscopy on Sunday Substance abuse Toxicology screen positive for Cocaine Abdominal pain 06/29 pm- resolved CT abd/pelvis 06/29) reviewed and reveals: nonspecific hepatomegaly. Stones and or wall thickening/pericholecystic fluid of the gallbladder. possible mild distal colitis. Small, nonspecific ascites. very small bilateral pleural effusions. reports abdminal pain improved - GI following - Abd US ordered - see above Recent osteomyelitis of right wrist 05/25: s/p exploration, excisional debridement, wash first extensor compartment right wrist bone biopsy distal radius right wrist infectious extensor tenosynovitis first extensor compartment right wrist partial tear of abductor pollicis longus and extensor pollicis brevis tendons soft distal radius metaphysis over the first extensor compartment Discussed with Dr. Card ok to have nurse remove sutures DVT prophylaxis SCDs will avoid chemical DVT prevention due to suspected GI bleed (2) Diabetes mellitus type 1 ICD Codes: E10.9 - Type 1 diabetes mellitus without complications Status: Chronic (3) Hyperglycemia ICD Codes: R73.9 - Hyperglycemia, unspecified Status: Acute (4) GI bleed ICD Codes: K92.2 - Gastrointestinal hemorrhage, unspecified Status: Acute Problem Qualifiers (1) GI bleed: Qualified Codes: K92.2 - Gastrointestinal hemorrhage, unspecified Cordell Golden DO Jul 01, 2017 16:51
[2017-07-01] MEDS ORDERED: PHARMACY ORDERED LAB ONE (19:45)
[2017-07-01 20:00] VITALS: BP 148/78; PULSE 96; RESP 18; TEMP 98.7; O2SAT 96
[2017-07-01 20:17] LABS: TRANSFERRIN IRON PROFILE 193 MG/DL (200-360)
[2017-07-01 20:20] LABS: FERRITIN 77 NG/ML (26-388); VANCOMYCIN TROUGH 17.1 MCG/ML (5.0-10.0)
[2017-07-01] MEDS ORDERED: ONDANSETRON HCL 4 MG/2 ML VIAL IV PUSH PRN (22:30)
[2017-07-02] VITALS (7 sets, daily range): BP systolic 154–176; BP diastolic 76–96; PULSE 49–59; RESP 16–20; TEMP 97.8–98.6; O2SAT 95–98
[2017-07-02] MEDS: ZOLPIDEM TARTRATE 5 MG TAB PO PRN ×2 (00:16→23:11)
[2017-07-02] MEDS: HYDROmorphone HCL 2 MG TAB PO PRN ×6 (00:16→21:04)
[2017-07-02] MEDS: PANTOPRAZOLE SODIUM 40 MG VIAL IV PUSH SCH ×2 (00:53→13:44)
[2017-07-02] MEDS: PIPERACIL-TAZO 4.5 GM PREMIX 100 ML IV SCH (04:05)
[2017-07-02] MEDS: VANCOMYCIN 1,000 MG/NS 250 ML IV SCH ×2 (04:05)
[2017-07-02] MEDS: INSULIN ASPART SUPPLEMENTAL SCALE SQ SCH ×4 (07:44→21:00)
[2017-07-02] MEDS: INSULIN DETEMIR 100 UNITS/ML VIAL SQ SCH ×2 (09:30→21:00)
[2017-07-02] MEDS ORDERED: LIDOCAINE HCL 1% PF 5 ML AMPULE OTHER ONE (12:00)
[2017-07-02] MEDS ORDERED: PROPOFOL 200 MG/20 ML AMP IV ONE (12:00)
--- NOTE | 2017-07-02 12:02 | GIPROC ---
[facility] [address] [facility]. [facility], [address] EGD PROCEDURE REPORT EXAM DATE: 07/02/2017 PATIENT NAME: Robert Vaughn MR #: [id number] BIRTHDATE: 1985 ATTENDING: Irina Sorensen MD ORDER #: [id number] CLOTHING PATTERNMAKER: Joce Lester and Akira Delaney STATUS: inpatient INDICATIONS: The patient is a 31 yr old male here for an EGD due to diarrhea abdominal pain PROCEDURE PERFORMED: EGD w/ biopsy MEDICATIONS: Per Anesthesia and None. TOPICAL ANESTHETIC: none CONSENT: The patient understands the risks and benefits of the procedure and understands that these risks include, but are not limited to: sedation, allergic reaction, infection, perforation and/or bleeding. Alternative means of evaluation and treatment include, among others: physical exam, x-rays, and/or surgical intervention. The patient elects to proceed with this endoscopic procedure. medical equipment was checked for proper function. Hand hygiene and appropriate measures for infection prevention was taken. After the risks, benefits and alternatives of the procedure were thoroughly explained, Informed consent was verified, confirmed and timeout was successfully executed by the treatment team. The patient was anesthetized with topical anesthesia and the EC-3490Li (Pedi C) and [id number] endoscope was introduced through the mouth and advanced to the second portion of the duodenum. Retroflexed views revealed a hiatal hernia The gastroscope was then slowly withdrawn and removed. Duodenum normal-biopsy gastritis antrum-biopsy esophagitis distal esophagus-biopsy. White deposits in esophagus-r/o troy. ADVERSE EVENTS: There were no complications. IMPRESSIONS: 1. Duodenum normal-biopsy gastritis antrum-biopsy esophagitis distal esophagus-biopsy 2. Retroflexed views revealed a hiatal hernia RECOMMENDATIONS: 1. Await biopsy results. Biopsy results will not be ready for 7-10 days. If you don't hear from us in two weeks, call our office for biopsy results. 2. Anti-reflux regimen 3. Continue PPI 4. General surgery eval for abnormal gb PATIENT CONDITION: stable DISPOSITION: Inpatient REPEAT EXAM: EGD pending biopsy results Irina Sorensen MD eSigned: Irina Sorensen MD 07/02/2017 12:02 PM cc: PATIENT NAME: Roderick Robert Beata MR#: [id number]
--- NOTE | 2017-07-02 12:05 | GIPROC ---
[facility] [address] [facility]. [facility], [address] COLONOSCOPY PROCEDURE REPORT EXAM DATE: 07/02/2017 PATIENT NAME: Robert Vaughn MR #: [id number] BIRTHDATE: 1985 ENDOSCOPIST: Irina Sorensen MD ORDER #: [id number] HIGH SCALER: Akira Delaney and Joce Lester STATUS: inpatient INDICATIONS: The patient is a 31 yr old male here for a colonoscopy due to diarrhea PROCEDURE PERFORMED: Colonoscopy with biopsy MEDICATIONS: Per Anesthesia and None. PREP QUALITY: good PREP TYPE:Other: ESTIMATED BLOOD LOSS: None CONSENT: The patient understands the risks and benefits of the procedure and understands that these risks include, but are not limited to: sedation, allergic reaction, infection, perforation and/or bleeding. Alternative means of evaluation and treatment include, among others: physical exam, x-rays, and/or surgical intervention. The patient elects to proceed with this endoscopic procedure. medical equipment was checked for proper function. Hand hygiene and appropriate measures for infection prevention was taken. After the risks, benefits and alternatives of the procedure were thoroughly explained, Informed consent was verified, confirmed and timeout was successfully executed by the treatment team. A digital exam revealed external hemorrhoids The Pentax EC-3490Li and [id number] endoscope was introduced through the anus and advanced to the cecum, which was identified by both the appendix and ileocecal valve. The instrument was then slowly withdrawn as the colon was fully examined. COLON FINDINGS: Normal colon-random biopsy ascending and descending. Retroflexed views revealed internal hemorrhoids and Retroflexed views revealed small internal hemorrhoids The scope was then completely withdrawn from the patient and the procedure terminated. PROCEDURE WITHDRAWAL TIME:6minutes ADVERSE EVENTS: There were no complications. IMPRESSIONS: 1. Normal colon-random biopsy ascending and descending 2. Retroflexed views revealed internal hemorrhoids 3. Retroflexed views revealed small internal hemorrhoids 4. Revealed external hemorrhoids RECOMMENDATIONS: 1. Await biopsy results. Biopsy results will not be ready for 7-10 days. If you don't hear from us in two weeks, call our office for results. 2. Benefiber 2 tsp daily 3. Probiotics from any [facility] or health food store 4. Yearly rectal exams 5. Hida scan RECALL: Colonoscopy, pending biopsy results Irina Sorensen MD eSigned: Irina Sorensen MD 07/02/2017 12:04 PM cc:
[2017-07-02] MEDS: CEFEPIME INJ 2,000 MG in SODIUM CHLORIDE 0.9% INJ 100 ML IV SCH ×2 (13:07→21:05)
[2017-07-02 21:08] LABS: AUTOMATED NEUTROPHIL # 3.9 TH/MM3 (1.8-7.7); BASOPHIL # 0.1 TH/MM3 (0-0.2); BASOPHIL % 0.9 % (0.0-2.0); EOSINOPHIL % 0.8 % (0.0-4.0); HEMATOCRIT 34.7 % (39.0-51.0); HEMO FLAGS DIFF FINAL; LYMPH % 21.4 % (9.0-44.0); LYMPHOCYTE # 1.3 TH/MM3 (1.0-4.8); MEAN CELL VOLUME 82.4 FL (80.0-100.0); MEAN CORPUSCULAR HEMOGLOBIN 26.9 PG (27.0-34.0); MEAN CORPUSCULAR HGB CONC 32.7 % (32.0-36.0); MONO % 10.4 % (0.0-8.0); NEUT % 66.5 % (16.0-70.0); PLATELET COUNT 284 TH/MM3 (150-450); RED BLOOD COUNT 4.22 MIL/MM3 (4.50-5.90); RED CELL DISTRIBUTION WIDTH 14.2 % (11.6-17.2); WHITE BLOOD COUNT 5.9 TH/MM3 (4.0-11.0)
--- NOTE | 2017-07-02 21:11 | HHI.PR ---
Subjective Remarks c/o ruq/epigastric pain 15min after meals Objective Vitals heart reg lung cta abd ruq tender ext no edema Vital Signs Date Time Temp Pulse Resp B/P (MAP) Pulse Ox O2 Delivery O2 Flow Rate FiO2 07/02/17 17:18 98.6 59 16 176/95 (122) 98 07/02/17 13:11 98.2 50 16 163/96 (118) 95 07/02/17 12:10 98.7 51 16 145/97 (113) 98 07/02/17 08:48 97.8 56 16 163/76 (105) 97 07/02/17 07:45 Room Air 07/02/17 04:57 154/88 (110) 07/02/17 04:57 18 07/02/17 04:00 98.4 49 20 160/88 (112) 98 07/02/17 04:00 Room Air 07/02/17 00:00 Room Air 07/02/17 00:00 98.5 52 19 158/92 (114) 97 07/02/17 07/02/17 07/03/17 15:00 23:00 07:00 Intake Total 450 ml Output Total 200 ml Balance 250 ml IV Total 450 ml Output Urine Total 200 ml # Voids 1 Result Diagram: 06/30/17 1119 07/01/17 1440 Imaging Last Impressions Abdomen/Pelvis CT 06/29/17 0000 Signed Impressions: Service Date/Time: Thursday, June 29, 2017 21:42 - CONCLUSION: 1. Nonspecific hepatomegaly. 2. Stones and/or wall thickening/pericholecystic fluid of the gallbladder. 3. Possible mild distal colitis. Otherwise no perceptible acute inflammatory changes. 4. Small, nonspecific ascites. 5. Very small bilateral pleural effusions. Casper Graham MD Chest X-Ray 06/28/172034 Signed Impressions: Service Date/Time: June 20:43 - CONCLUSION: No evidence of acute cardiopulmonary disease. Left arm PICC line tip is at the atriocaval junction. Casper Graham MD Wrist X-Ray 06/28/17 0000 Signed Impressions: Service Date/Time: June 20:49 - CONCLUSION: Nonspecific soft tissue swelling. No radiopaque foreign body or acute bony abnormality demonstrated. Casper Graham MD A/P Problem List: (1) Infectious tenosynovitis of right wrist extensor ICD Codes: M65.131 - Other infective (teno)synovitis, right wrist Plan: Bacteremia Patient is S/P Exploration, excisional debridement first extensor compartment right wrist and bone biopsy distal radius right wrist, on 05/25/[address] Card Patient was DC 'd home with PICC line and IV Rocephin returned to the ER 06/28/17 Patient stated on IV Vancomycin and Zosyn Consult placed to ID recommends continue Zosyn, DC vancomycin, remove PICC wound culture (06/28/17) --> Enterobacter, Stenotrophomonas Blood culture positive for GNR and Enterobacter Species Repeat Blood Cx (06/30) --> NO growth to date 2D echocardiogram (06/30) --> NO vegetation supportive care -- can cannot be discharge to home with IV access. Pt misused PICC line. - Consider discharge to SNF for course of antibiotic therapy, will d/w FHCP Case Mgmt DM type 1 -cont levemir Anemia Possible GI bleed - comgmt with GI Patient with anemia hemoglobin of 9.7 on admission repeat hgb 10.6 (06/30) patient's hgb trend between 11 and 13 occult stool positive patient started on Protonix drip in the ER, changed BID EGD/Colonoscopy today. no active bleeding. Substance abuse Toxicology screen positive for Cocaine Abdominal pain CT abd/pelvis 06/29) reviewed and reveals: nonspecific hepatomegaly. Stones and or wall thickening/pericholecystic fluid of the gallbladder. possible mild distal colitis. Small, nonspecific ascites. very small bilateral pleural effusions. reports abdminal pain improved - GI following - Abd US ordered and pending - gen surgery consulted. discussed with dr Flannery who will eval pt tomorrow. (2) Diabetes mellitus type 1 ICD Codes: E10.9 - Type 1 diabetes mellitus without complications Status: Chronic (3) Hyperglycemia ICD Codes: R73.9 - Hyperglycemia, unspecified Status: Acute (4) GI bleed ICD Codes: K92.2 - Gastrointestinal hemorrhage, unspecified Status: Acute Problem Qualifiers (1) GI bleed: Qualified Codes: K92.2 - Gastrointestinal hemorrhage, unspecified Joe Umana MD Jul 02, 2017 21:11
[2017-07-02 22:08] LABS: ALKALINE PHOSPHATASE 231 U/L (45-117); ALT (GPT) 36 U/L (12-78); ANION GAP 8 MEQ/L (5-15); AST (GOT) 21 U/L (15-37); BLOOD UREA NITROGEN 9 MG/DL (7-18); CHLORIDE 106 MEQ/L (98-107); GLOMERULAR FILTRATION RATE 77 ML/MIN (>89); POTASSIUM 3.7 MEQ/L (3.5-5.1); SODIUM (NA) 142 MEQ/L (136-145); TOTAL BILIRUBIN ADULT 0.3 MG/DL (0.2-1.0)
--- NOTE | 2017-07-02 22:30 | RADRPT ---
EXAM DATE/TIME: 07/02/2017 21:13 [facility] COMPARISON: CT ABDOMEN & PELVIS W CONTRAST, June 29, 2017, 21:42. INDICATIONS : Abnormal CT. MEDICAL HISTORY : Migraine. Confusion. Abdominal pain. Herniated disk. Diabetes. Depression. Anxiety. SURGICAL HISTORY : Facial reconstruction. ENCOUNTER: Initial ACUITY: 2 days PAIN SCORE: 0/10 LOCATION: Right upper quadrant MEASUREMENTS: LIVER: 17.7 cm length COMMON DUCT: 2 mm RIGHT KIDNEY: 11.0 x 5.7 x 4.6 cm FINDINGS: LIVER: Normal echotexture without focal lesion or ductal dilatation. COMMON DUCT: No intraluminal mass or stone visualized. GALLBLADDER: The gallbladder is not distended. Gallbladder wall is thickened and appears edematous measuring 1.3 c m. Gallstones are not seen. PANCREAS: The visualized portions are within normal limits. RIGHT KIDNEY: No evidence of hydronephrosis, stone, or mass. CONCLUSION: Thickening of the gallbladder wall. This could be from processes such as hepatic disease versus acalc ulus cholecystitis. Casper Singh MD on July 02, 2017 at 22:24 Board Certified Radiologist. This report was verified electronically.
[2017-07-03] VITALS: BP 173/83; PULSE 60; RESP 20; TEMP 97.9; O2SAT 100
[2017-07-03] MEDS: PANTOPRAZOLE SODIUM 40 MG VIAL IV PUSH SCH ×2 (03:21→17:04)
[2017-07-03] MEDS: CEFEPIME INJ 2,000 MG in SODIUM CHLORIDE 0.9% INJ 100 ML IV SCH ×3 (03:21→20:23)
[2017-07-03 04:00] VITALS: BP 158/80; PULSE 53; RESP 16; TEMP 97.7; O2SAT 96
[2017-07-03] MEDS: HYDROmorphone HCL 2 MG TAB PO PRN ×5 (05:05→21:02)
[2017-07-03] MEDS ORDERED: INSULIN ASPART 1,000 UNITS/10 ML VIAL SQ SCH (05:10)
[2017-07-03 08:00] VITALS: BP 162/88; PULSE 60; RESP 20; TEMP 97.4; O2SAT 100
--- NOTE | 2017-07-03 08:22 | HHI.GIFU ---
Subjective Remarks Resting in bed. C/O RUQ pressure like pain that radiates to his mid abdomen when he eats. No vomiting. + bloating. (Dona Baird) Objective Vitals I&O Vital Signs Date Time Temp Pulse Resp B/P (MAP) Pulse Ox O2 Delivery O2 Flow Rate FiO2 07/03/17 04:00 97.7 53 16 158/80 (106) 96 07/03/17 04:00 Room Air 07/03/17 00:00 97.9 60 20 173/83 (113) 100 07/03/17 00:00 Room Air 07/02/17 20:00 Room Air 07/02/17 20:00 98.1 58 20 172/91 (118) 97 07/02/17 17:18 98.6 59 16 176/95 (122) 98 07/02/17 13:11 98.2 50 16 163/96 (118) 95 07/02/17 12:10 98.7 51 16 145/97 (113) 98 07/02/17 08:48 97.8 56 16 163/76 (105) 97 I/O 07/02/17 07/02/17 07/02/17 07/03/17 07/03/17 07/03/17 07:00 15:00 23:00 07:00 15:00 23:00 Intake Total 1550 ml 450 ml 100 ml 480 ml Output Total 200 ml Balance 1550 ml 250 ml 100 ml 480 ml Intake Oral 1200 ml 480 ml IV Total 350 ml 450 ml 100 ml Output Urine Total 200 ml # Voids 10 1 5 # Bowel Movements 12 0 Laboratory Laboratory Tests Test 07/02/17 19:46 07/03/17 05:30 White Blood Count 5.9 Red Blood Count 4.22 Hemoglobin 11.4 Hematocrit 34.7 Mean Corpuscular Volume 82.4 Mean Corpuscular Hemoglobin 26.9 Mean Corpuscular Hemoglobin Concent 32.7 Red Cell Distribution Width 14.2 Platelet Count 284 Mean Platelet Volume 7.7 Neutrophils (%) (Auto) 66.5 Lymphocytes (%) (Auto) 21.4 Monocytes (%) (Auto) 10.4 Eosinophils (%) (Auto) 0.8 Basophils (%) (Auto) 0.9 Neutrophils # (Auto) 3.9 Lymphocytes # (Auto) 1.3 Monocytes # (Auto) 0.6 Eosinophils # (Auto) 0.0 Basophils # (Auto) 0.1 CBC Comment DIFF FINAL Differential Comment Blood Urea Nitrogen 9 Creatinine 1.13 1.20 Random Glucose 183 Total Protein 6.8 Albumin 2.5 Calcium Level 8.4 Alkaline Phosphatase 231 Aspartate Amino Transf (AST/SGOT) 21 Alanine Aminotransferase (ALT/SGPT) 36 Total Bilirubin 0.3 Sodium Level 142 Potassium Level 3.7 Chloride Level 106 Carbon Dioxide Level 28.0 Anion Gap 8 Estimat Glomerular Filtration Rate 77 72 Fasting Glucose 361 Date/Time Source Procedure Growth Status 06/30/17 11:24 Blood Peripheral Aerobic Blood Culture - Preliminary NO GROWTH IN 2 DAYS Resulted 06/30/17 11:24 Blood Peripheral Anaerobic Blood Culture - Preliminary NO GROWTH IN 2 DAYS Resulted 06/29/17 18:00 Catheter Tip Other Wound Culture - Final NO GROWTH IN 48 HOURS. Complete Imaging Last Impressions Gall Bladder Ultrasound 07/02/17 0000 Signed Impressions: Service Date/Time: Sunday, July 02, 2017 21:13 - CONCLUSION: Thickening of the gallbladder wall. This could be from processes such as hepatic disease versus acalculus cholecystitis. Casper Singh MD Abdomen/Pelvis CT 06/29/17 0000 Signed Impressions: Service Date/Time: Thursday, June 29, 2017 21:42 - CONCLUSION: 1. Nonspecific hepatomegaly. 2. Stones and/or wall thickening/pericholecystic fluid of the gallbladder. 3. Possible mild distal colitis. Otherwise no perceptible acute inflammatory changes. 4. Small, nonspecific ascites. 5. Very small bilateral pleural effusions. Casper Graham MD Chest X-Ray 06/28/172034 Signed Impressions: Service Date/Time: June 20:43 - CONCLUSION: No evidence of acute cardiopulmonary disease. Left arm PICC line tip is at the atriocaval junction. Casper Graham MD Wrist X-Ray 06/28/17 0000 Signed Impressions: Service Date/Time: June 20:49 - CONCLUSION: Nonspecific soft tissue swelling. No radiopaque foreign body or acute bony abnormality demonstrated. Casper Graham MD Physical Exam HEENT: Normocephalic; atraumatic; no jaundice. NECK: Neck is supple CHEST: CTA CARDIAC: RRR with no murmur gallop or rubs. ABDOMEN: Soft, nondistended, mild tenderness RUQ; no hepatosplenomegaly; bowel sounds are present. EXTREMITIES: No clubbing, cyanosis, or edema. SKIN: Normal; no rash; no jaundice. [employer] SAL[employer]ERSON: No focal deficits; alert and oriented times three. (Dnoa Baird KATHY) Assessment and Plan Plan ASSESSMENT - Anemia, heme pos stool. S/P EGD/Colonoscopy (07/03/17)----> 1. Duodenum normal -biopsy, gastritis antrum-biopsy esophagitis distal esophagus-biopsy 2. Retroflexed views revealed a hiatal hernia 1. Normal colon-random biopsy ascending and descending 2. Retroflexed views revealed internal hemorrhoids 3. Retroflexed views revealed small internal hemorrhoids 4. Revealed external hemorrhoids. Pathology pending. PPI. 11.4/34.7. - Abdomen pain, unclear etiology. CT Scan abdomen and pelvis (06/29/17)---> Nonspecific hepatomegaly, stones and/or wall thickening/pericholecystic fluid of the gallbladder, possible mild distal colitis, otherwise no perceptible acute inflammatory change, small, nonspecific ascites, very small bilateral pleural effusions. EGD/Colonoscopy as above. RUQ US (07/02/17)---> Thickening of the gallbladder wall. This could be from processes such as hepatic disease versus acalculous cholecystitis. Now complaining of RUQ pain that radiates to mid abdomen with oral intake. GS consulted. - ? Colitis, mild distal. Colonoscopy did not appreciate any colitis. - Elevated LFTs. Denies ETOH use. + Cocaine on toxicology screen. CT/USas above. Hepatitis profile neg. SIENNA negative, AMA p, ASMA p, AFP 1.4, Ceruloplasmin p, Alpha 1 Antitrypsin p, Iron saturation 18.1, Ferritin 77. LFTs improved. - Abnormal imaging regarding the GB on CT, questionable stones and/or wall thickening/pericholecystic fluid. Of note, states he had pancreatitis 10 years ago and swears he does not drink ETOH. US as above. GS evaluation pending. - FRANCISCO, Improved. - Bacteremia with enterobacter cloacae. Pt had infectious tenosynovitis of right wrist extensor, s/p exploration, excisional debridement first extensor compartment right wrist and bone biopsy distal radius right wrist, on 05/25/[address] Card, was discharged home with PICC line/IV Abx. Cefepime - DM, Type I, PSA per attending. PLAN - TREASURE - Await pathology - PPI - GS evaluation - Await liver jackson - Supportive care - Further recommendations to follow based on results of above. - Patient seen and examined by Dr. Sorensen and this note is written on her behalf. (Dona Baird) Physician Comments seen, examined agree with above await surgery input fu biopsy if dc fu office (Irina Sorensen MD) Dona Baird Jul 03, 2017 08:22 Irina Sorensen MD Jul 03, 2017 16:42
[2017-07-03] MEDS: INSULIN DETEMIR 100 UNITS/ML VIAL SQ SCH (08:47)
[2017-07-03] MEDS: INSULIN ASPART SUPPLEMENTAL SCALE SQ SCH ×4 (08:47→20:23)
--- NOTE | 2017-07-03 11:53 | HHI.PR ---
Subjective Remarks still c/o of ruq with meals. Objective Vitals heart reg lung cta abd ruq tender ext no edema Vital Signs Date Time Temp Pulse Resp B/P (MAP) Pulse Ox O2 Delivery O2 Flow Rate FiO2 07/03/17 08:51 Room Air 07/03/17 08:00 97.4 60 20 162/88 (112) 100 07/03/17 04:00 97.7 53 16 158/80 (106) 96 07/03/17 04:00 Room Air 07/03/17 00:00 97.9 60 20 173/83 (113) 100 07/03/17 00:00 Room Air 07/02/17 20:00 Room Air 07/02/17 20:00 98.1 58 20 172/91 (118) 97 07/02/17 17:18 98.6 59 16 176/95 (122) 98 07/02/17 13:11 98.2 50 16 163/96 (118) 95 07/02/17 12:10 98.7 51 16 145/97 (113) 98 Result Diagram: 07/02/17194507/03/17 0530 Imaging Last Impressions Abdomen/Pelvis CT 06/29/17 0000 Signed Impressions: Service Date/Time: Thursday, June 29, 2017 21:42 - CONCLUSION: 1. Nonspecific hepatomegaly. 2. Stones and/or wall thickening/pericholecystic fluid of the gallbladder. 3. Possible mild distal colitis. Otherwise no perceptible acute inflammatory changes. 4. Small, nonspecific ascites. 5. Very small bilateral pleural effusions. Casper Graham MD Chest X-Ray 06/28/172034 Signed Impressions: Service Date/Time: June 20:43 - CONCLUSION: No evidence of acute cardiopulmonary disease. Left arm PICC line tip is at the atriocaval junction. Casper Graham MD Wrist X-Ray 06/28/17 0000 Signed Impressions: Service Date/Time: June 20:49 - CONCLUSION: Nonspecific soft tissue swelling. No radiopaque foreign body or acute bony abnormality demonstrated. Casper Graham MD A/P Problem List: (1) Infectious tenosynovitis of right wrist extensor ICD Codes: M65.131 - Other infective (teno)synovitis, right wrist Plan: Bacteremia Patient is S/P Exploration, excisional debridement first extensor compartment right wrist and bone biopsy distal radius right wrist, on 05/25/[address] Card Patient was DC 'd home with PICC line and IV Rocephin returned to the ER 06/28/17 Patient stated on IV Vancomycin and Zosyn Consult placed to ID recommends continue Zosyn, DC vancomycin, remove PICC wound culture (06/28/17) --> Enterobacter, Stenotrophomonas Blood culture positive for GNR and Enterobacter Species Repeat Blood Cx (06/30) --> NO growth to date 2D echocardiogram (06/30) --> NO vegetation supportive care -- can cannot be discharge to home with IV access. Pt misused PICC line. -- I gave pt options for snf with peripheral iv or going to infusion center but would likely need to iv each infusion. So far he refuses these options. DM type 1 -cont levemir. increase to 30 units qhs Anemia Possible GI bleed - comgmt with GI Patient with anemia hemoglobin of 9.7 on admission repeat hgb 10.6 (06/30) patient's hgb trend between 11 and 13 occult stool positive patient started on Protonix drip in the ER, changed BID EGD/Colonoscopy. no active bleeding. Substance abuse Toxicology screen positive for Cocaine Abdominal pain CT abd/pelvis 06/29) reviewed and reveals: nonspecific hepatomegaly. Stones and or wall thickening/pericholecystic fluid of the gallbladder. possible mild distal colitis. Small, nonspecific ascites. very small bilateral pleural effusions. reports abdminal pain improved - GI following - Abd US ordered and noted. - gen surgery consulted. discussed with dr Flannery who will eval pt today (2) Diabetes mellitus type 1 ICD Codes: E10.9 - Type 1 diabetes mellitus without complications Status: Chronic (3) Hyperglycemia ICD Codes: R73.9 - Hyperglycemia, unspecified Status: Acute (4) GI bleed ICD Codes: K92.2 - Gastrointestinal hemorrhage, unspecified Status: Acute Problem Qualifiers (1) GI bleed: Qualified Codes: K92.2 - Gastrointestinal hemorrhage, unspecified Joe Umana MD Jul 03, 2017 11:53
[2017-07-03 12:00] VITALS: BP 136/77; PULSE 57; RESP 20; TEMP 97.2; O2SAT 97
[2017-07-03] MEDS ORDERED: ALUMINUM/MAGNESIUM/SIMETH 30 ML CUP PO PRN (12:00)
[2017-07-03 16:00] VITALS: BP 151/89; PULSE 57; RESP 20; TEMP 97.2; O2SAT 98
[2017-07-03 20:23] VITALS: BP 153/80; PULSE 68; RESP 18; TEMP 97.8; O2SAT 97
--- NOTE | 2017-07-03 20:28 | HHI.PR ---
Subjective Subjective Notes The patient is a 31-year-old male who was admitted several days ago for evaluation of sepsis. He been treated in the recent past for osteomyelitis of the right wrist. He was sent home with a PICC line to treat the osteomyelitis and evidently used the line for cocaine use. He is admitted at this time with sepsis and abdominal pain. His pain is fairly constant and is worse when he eats something (no matter what it is according to the patient). He states that the pain is located in the right upper quadrant mainly although it sometimes radiates to the mid epigastrium and the right side of the back. He's had no nausea or vomiting or fever. Objective Vitals/I&O Vital Signs Date Time Temp Pulse Resp B/P (MAP) Pulse Ox O2 Delivery O2 Flow Rate FiO2 07/03/17 16:00 97.2 57 20 151/89 (109) 98 07/03/17 08:51 Room Air Labs Laboratory Tests Test 07/03/17 05:30 Creatinine 1.20 Estimat Glomerular Filtration Rate 72 Fasting Glucose 361 Date/Time Source Procedure Growth Status 06/30/17 11:24 Blood Peripheral Aerobic Blood Culture - Preliminary NO GROWTH IN 3 DAYS Resulted 06/30/17 11:24 Blood Peripheral Anaerobic Blood Culture - Preliminary NO GROWTH IN 3 DAYS Resulted 06/29/17 18:00 Catheter Tip Other Wound Culture - Final NO GROWTH IN 48 HOURS. Complete Radiology Last 72 hours Impressions Gall Bladder Ultrasound 07/02/17 0000 Signed Impressions: Service Date/Time: Sunday, July 02, 2017 21:13 - CONCLUSION: Thickening of the gallbladder wall. This could be from processes such as hepatic disease versus acalculus cholecystitis. Casper Singh MD Cardiovascular: Regular Lungs: Clear Extremities: No edema Narrative Exam The patient's abdomen is soft. He is minimally tender to palpation of the right upper quadrant with no other tenderness anywhere. He has no significant peritoneal signs. A/P Assessment and Plan Impression: The patient has an abnormal appearing gallbladder with a thickened gallbladder wall without evidence of stones as seen on ultrasound. The biliary tree is otherwise normal. He has significant hepatomegaly as well as ascites. In view of the ultrasound and CT reports it is unclear whether the patient is suffering from acalculous cholecystitis or hepatocellular disease. He certainly has no secondary evidence of acute cholecystitis without fever or significantly elevated white blood count. Plan: I will reevaluate the patient tomorrow and discuss the radiographic findings with interventional radiology. At this point I'm not really sure that intervention is necessary or should be attempted, particularly in view of his overall diminished health status with sepsis, anemia, and his relative malnutrition. Siddhartha Flannery MD Jul 03, 2017 20:28
[2017-07-03] MEDS ORDERED: INSULIN DETEMIR 100 UNITS/ML VIAL SQ SCH (21:00)
[2017-07-03] MEDS: ZOLPIDEM TARTRATE 5 MG TAB PO PRN (21:54)
[2017-07-04 00:29] VITALS: BP 158/82; PULSE 65; RESP 18; TEMP 98.1; O2SAT 96
[2017-07-04] MEDS: HYDROmorphone HCL 2 MG TAB PO PRN ×5 (00:58→17:32)
[2017-07-04] MEDS: PANTOPRAZOLE SODIUM 40 MG VIAL IV PUSH SCH ×2 (00:58→14:12)
[2017-07-04 03:46] VITALS: BP 143/102; PULSE 65; RESP 20; TEMP 98.7; O2SAT 98
[2017-07-04] MEDS: CEFEPIME INJ 2,000 MG in SODIUM CHLORIDE 0.9% INJ 100 ML IV SCH ×2 (04:32→12:27)
[2017-07-04 08:00] VITALS: BP 151/91; PULSE 59; RESP 18; TEMP 98.1; O2SAT 98
[2017-07-04] MEDS: INSULIN ASPART SUPPLEMENTAL SCALE SQ SCH ×3 (08:00→17:37)
[2017-07-04 09:30] LABS: BATH SALTS (MDPV) UR NEG (NEG); ECSTASY (MDMA) UR NEG (NEG); HEROIN (6-ACETYLMORPHINE) UR NEG (NEG); K2 SPICE UR NEG (NEG); OBMETHADONE UR NEG (NEG); PHENCYCLIDINE URINE NEG (NEG)
[2017-07-04 09:31] LABS: GABAPENTIN UR NEG (NEG)
[2017-07-04 09:32] LABS: HYDROMORPHONE U POS (NEG)
--- NOTE | 2017-07-04 09:46 | HHI.PR ---
Subjective Remarks ruq pain with food. no drainage from the wrist wound. Objective Vitals heart reg lung cta abd ruq tender. no rebound ext right wrist surgical site. healing no drainage. Vital Signs Date Time Temp Pulse Resp B/P (MAP) Pulse Ox O2 Delivery O2 Flow Rate FiO2 07/04/17 08:00 98.1 59 18 151/91 (111) 98 07/04/17 04:00 Room Air 07/04/17 03:46 98.7 65 20 143/102 (116) 98 07/04/17 00:29 98.1 65 18 158/82 (107) 96 07/04/17 00:00 Room Air 07/03/17 20:23 97.8 68 18 153/80 (104) 97 07/03/17 20:00 Room Air 07/03/17 16:00 97.2 57 20 151/89 (109) 98 07/03/17 12:00 97.2 57 20 136/77 (96) 97 Result Diagram: 07/02/17194507/03/17 0530 Imaging Last Impressions Abdomen/Pelvis CT 06/29/17 0000 Signed Impressions: Service Date/Time: Thursday, June 29, 2017 21:42 - CONCLUSION: 1. Nonspecific hepatomegaly. 2. Stones and/or wall thickening/pericholecystic fluid of the gallbladder. 3. Possible mild distal colitis. Otherwise no perceptible acute inflammatory changes. 4. Small, nonspecific ascites. 5. Very small bilateral pleural effusions. Casper Graham MD Chest X-Ray 06/28/172034 Signed Impressions: Service Date/Time: June 20:43 - CONCLUSION: No evidence of acute cardiopulmonary disease. Left arm PICC line tip is at the atriocaval junction. Casper Graham MD Wrist X-Ray 06/28/17 0000 Signed Impressions: Service Date/Time: June 20:49 - CONCLUSION: Nonspecific soft tissue swelling. No radiopaque foreign body or acute bony abnormality demonstrated. Casper Graham MD A/P Problem List: (1) Infectious tenosynovitis of right wrist extensor ICD Codes: M65.131 - Other infective (teno)synovitis, right wrist Plan: Patient is S/P Exploration, excisional debridement first extensor compartment right wrist and bone biopsy distal radius right wrist, on 8/25/[address] Card Patient was DC 'd home with PICC line and IV Rocephin returned to the ER 06/28/17 Consult placed to ID . picc removed. concern pt is misusing it. Cocaine use wound culture (06/28/17) --> Enterobacter, Stenotrophomonas Blood culture positive Enterobacter Repeat Blood Cx (06/30) --> NO growth to date 2D echocardiogram (06/30) --> NO vegetation CT and US possible cholecystitis -- can cannot be discharge to home with IV access. Pt misused PICC line. -- I gave pt options for snf with peripheral iv or going to infusion center He refused these options. discussed with ID Dr Camacho who thinks the infection is controlled. We might be able to use po levaquin and just d/c to home - await final surgical recommendations for his gallbladder today. -cont levemir. increase to 30 units qhs -f/u egd biopsies. (2) Diabetes mellitus type 1 ICD Codes: E10.9 - Type 1 diabetes mellitus without complications Status: Chronic (3) Hyperglycemia ICD Codes: R73.9 - Hyperglycemia, unspecified Status: Acute (4) GI bleed ICD Codes: K92.2 - Gastrointestinal hemorrhage, unspecified Status: Acute Problem Qualifiers (1) GI bleed: Qualified Codes: K92.2 - Gastrointestinal hemorrhage, unspecified Joe Umana MD Jul 04, 2017 09:46
[2017-07-04] MEDS ORDERED: NICOTINE 4 MG/GUM CHEW PRN (10:00)
[2017-07-04] MEDS ORDERED: NICOTINE 4 MG/GUM CHEW ONE (10:00)
[2017-07-04 12:00] VITALS: BP 158/82; PULSE 63; RESP 18; TEMP 98.3; O2SAT 96
--- NOTE | 2017-07-04 12:32 | HHI.GIFU ---
Subjective Remarks Resting in bed. Feeling better overall, but continues to have RUQ pain, especially after eating. Objective Vitals I&O Vital Signs Date Time Temp Pulse Resp B/P (MAP) Pulse Ox O2 Delivery O2 Flow Rate FiO2 07/04/17 08:00 98.1 59 18 151/91 (111) 98 07/04/17 04:00 Room Air 07/04/17 03:46 98.7 65 20 143/102 (116) 98 07/04/17 00:29 98.1 65 18 158/82 (107) 96 07/04/17 00:00 Room Air 07/03/17 20:23 97.8 68 18 153/80 (104) 97 07/03/17 20:00 Room Air 07/03/17 16:00 97.2 57 20 151/89 (109) 98 I/O 07/03/17 07/03/17 07/03/17 07/04/17 07/04/17 07/04/17 07:00 15:00 23:00 07:00 15:00 23:00 Intake Total 480 ml 980 ml 100 ml Output Total 1600 ml Balance 480 ml -620 ml 100 ml Intake Oral 480 ml 780 ml IV Total 200 ml 100 ml Output Urine Total 1600 ml # Voids 5 # Bowel Movements 0 3 Laboratory Date/Time Source Procedure Growth Status 06/30/17 11:24 Blood Peripheral Aerobic Blood Culture - Preliminary NO GROWTH IN 4 DAYS Resulted 06/30/17 11:24 Blood Peripheral Anaerobic Blood Culture - Preliminary NO GROWTH IN 4 DAYS Resulted 06/29/17 18:00 Catheter Tip Other Wound Culture - Final NO GROWTH IN 48 HOURS. Complete Imaging Last Impressions Gall Bladder Ultrasound 07/02/17 0000 Signed Impressions: Service Date/Time: Sunday, July 02, 2017 21:13 - CONCLUSION: Thickening of the gallbladder wall. This could be from processes such as hepatic disease versus acalculus cholecystitis. Casper Singh MD Abdomen/Pelvis CT 06/29/17 0000 Signed Impressions: Service Date/Time: Thursday, June 29, 2017 21:42 - CONCLUSION: 1. Nonspecific hepatomegaly. 2. Stones and/or wall thickening/pericholecystic fluid of the gallbladder. 3. Possible mild distal colitis. Otherwise no perceptible acute inflammatory changes. 4. Small, nonspecific ascites. 5. Very small bilateral pleural effusions. Casper Graham MD Chest X-Ray 06/28/172034 Signed Impressions: Service Date/Time: June 20:43 - CONCLUSION: No evidence of acute cardiopulmonary disease. Left arm PICC line tip is at the atriocaval junction. Casper Graham MD Wrist X-Ray 06/28/17 0000 Signed Impressions: Service Date/Time: June 20:49 - CONCLUSION: Nonspecific soft tissue swelling. No radiopaque foreign body or acute bony abnormality demonstrated. Casper Graham MD Physical Exam HEENT: Normocephalic; atraumatic; no jaundice. NECK: Neck is supple CHEST: CTA CARDIAC: RRR with no murmur gallop or rubs. ABDOMEN: Soft, nondistended, mild tenderness RUQ; no hepatosplenomegaly; bowel sounds are present. EXTREMITIES: No clubbing, cyanosis, or edema. SKIN: Normal; no rash; no jaundice. [employer] INSPECTOR: No focal deficits; alert and oriented times three. Assessment and Plan Plan ASSESSMENT - Anemia, heme pos stool. S/P EGD/Colonoscopy (07/03/17)----> 1. Duodenum normal -biopsy, gastritis antrum-biopsy esophagitis distal esophagus-biopsy 2. Retroflexed views revealed a hiatal hernia 1. Normal colon-random biopsy ascending and descending 2. Retroflexed views revealed internal hemorrhoids 3. Retroflexed views revealed small internal hemorrhoids 4. Revealed external hemorrhoids. Pathology small bowel mucosa without significant histologic abnormality, gastric antral mucosa without significant histologic abnormality, no helicobacter pylori like organisms are presents, hyperplastic squamous mucosa with features of reflux esophagitis, colonic mucosa without significant histologic abnormality. PPI. HH Stable. - Abdomen pain, unclear etiology. CT Scan abdomen and pelvis (06/29/17)---> Nonspecific hepatomegaly, stones and/or wall thickening/pericholecystic fluid of the gallbladder, possible mild distal colitis, otherwise no perceptible acute inflammatory change, small, nonspecific ascites, very small bilateral pleural effusions. EGD/Colonoscopy as above. RUQ US (07/02/17)---> Thickening of the gallbladder wall. This could be from processes such as hepatic disease versus acalculous cholecystitis. Now complaining of RUQ pain that radiates to mid abdomen with oral intake. GS following, unclear if he has acalculous cholecystitis vs. hepatocellular disease. Dr. Flannery is planning on speaking with radiology today. - ? Colitis, mild distal. Colonoscopy did not appreciate any colitis. - Elevated LFTs. Denies ETOH use. + Cocaine on toxicology screen. CT/USas above. Hepatitis profile neg. SIENNA negative, AMA p, ASMA p, AFP 1.4, Ceruloplasmin p, Alpha 1 Antitrypsin 206, Iron saturation 18.1, Ferritin 77. LFTs improved. - Abnormal imaging regarding the GB on CT, questionable stones and/or wall thickening/pericholecystic fluid. Of note, states he had pancreatitis 10 years ago and swears he does not drink ETOH. US as above. GS following. - FRANCISCO, Improved. - Bacteremia with enterobacter cloacae. Pt had infectious tenosynovitis of right wrist extensor, s/p exploration, excisional debridement first extensor compartment right wrist and bone biopsy distal radius right wrist, on 05/25/[address] Card, was discharged home with PICC line/IV Abx. Cefepime - DM, Type I, PSA per attending. PLAN - TREASURE - PPI - Await liver jackson - Supportive care - GS following, plan is to speak to radiology re: gb imaging today - Further recommendations to follow based on results of above. - Patient seen and examined by Dr. Sorensen and this note is written on her behalf. Dona Baird Jul 04, 2017 12:32
--- NOTE | 2017-07-04 14:58 | HHI.PR ---
Addendum to Inpatient Note Additional Information pt seen around 1300 full note to follow afebrile Nl WBC co RUQ pain US with ? acute cholecystitis choecystostomy planned anticipate transition to oral abx prior to dc dw Liudmila Veras MD Jul 04, 2017 14:58
--- NOTE | 2017-07-04 14:59 | HHI.PR ---
Subjective Subjective Notes The patient does not feel that today, but complains of occasional right upper quadrant pain which is exacerbated by eating. He denies any nausea or vomiting , and has had no fever. Objective Vitals/I&O Vital Signs Date Time Temp Pulse Resp B/P (MAP) Pulse Ox O2 Delivery O2 Flow Rate FiO2 07/04/17 12:00 98.3 63 18 158/82 (107) 96 07/04/17 04:00 Room Air Labs Date/Time Source Procedure Growth Status 06/30/17 11:24 Blood Peripheral Aerobic Blood Culture - Preliminary NO GROWTH IN 4 DAYS Resulted 06/30/17 11:24 Blood Peripheral Anaerobic Blood Culture - Preliminary NO GROWTH IN 4 DAYS Resulted 06/29/17 18:00 Catheter Tip Other Wound Culture - Final NO GROWTH IN 48 HOURS. Complete Radiology Last 72 hours Impressions Gall Bladder Ultrasound 07/02/17 0000 Signed Impressions: Service Date/Time: Sunday, July 02, 2017 21:13 - CONCLUSION: Thickening of the gallbladder wall. This could be from processes such as hepatic disease versus acalculus cholecystitis. Casper Singh MD Cardiovascular: Regular Lungs: Clear Abdomen: Non-distended, Non-tender, BS normal Narrative Exam His abdomen reveals main soft and very minimally tender in the right upper quadrant. A/P Assessment and Plan Impression: I had a conversation with Dr. Desai of radiology. His opinion is that in view of all the studies, the patient most likely has some element of hepatocellular disease which is manifesting the changes associated with the gallbladder. He sees no evidence for acute cholecystitis. Plan: From the surgery standpoint, no intervention is necessary or indicated at this point. My recommendation would be to discharge the patient with a consultation to [facility] psychiatry for management of his substance use disorder. I believe he should also follow-up with GI and from the standpoint of his hepatocellular disease. Siddhartha Flannery MD Jul 04, 2017 14:59
[2017-07-04 16:00] VITALS: BP 144/86; PULSE 63; RESP 18; TEMP 98.7; O2SAT 94
[2017-07-04] MEDS ORDERED: LEVA750T9 PO (17:17)
--- NOTE | 2017-07-04 17:30 | HHI.IDPN ---
Subjective Subjective Remarks delayed entry pt seen around 1300 pt is afebrile repeat BC wnl WBC co RUQ pain US with ? acute cholecystitis choecystostomy planned, but now he is cleared by Gen Surgery colonoscopy on 07/02 - wnl Antibiotics cefepime Allergies: Coded Allergies: Sugars, Metabolically Active (Unverified Allergy, Severe, 06/27/17) acetaminophen (Unverified Allergy, Severe, 06/27/17) tramadol (Unverified Allergy, Severe, 06/27/17) atenolol (Verified Allergy, Intermediate, FLUSHED , 06/27/17) FLUSHED/RED hydrocodone (Verified Allergy, Intermediate, ITCHY, 06/27/17) lisinopril (Verified Allergy, Intermediate, FLUSHED , 06/27/17) FLUSHED/RED oxycodone (Verified Allergy, Intermediate, ITCHY, 06/27/17) propoxyphene (Unverified Adverse Reaction, Severe, SKIN GETS FLUSHED AND PT STS FEELS FUNNY, 06/27/17) Uncoded Allergies: creatine (Allergy, Unknown, 01/10/15) Objective . Vital Signs Date Time Temp Pulse Resp B/P (MAP) Pulse Ox O2 Delivery O2 Flow Rate FiO2 07/04/17 16:00 98.7 63 18 144/86 (105) 94 07/04/17 12:00 98.3 63 18 158/82 (107) 96 07/04/17 08:00 98.1 59 18 151/91 (111) 98 07/04/17 04:00 Room Air 07/04/17 03:46 98.7 65 20 143/102 (116) 98 07/04/17 00:29 98.1 65 18 158/82 (107) 96 07/04/17 00:00 Room Air 07/03/17 20:23 97.8 68 18 153/80 (104) 97 07/03/17 20:00 Room Air . Laboratory Tests Test 07/02/17 19:46 White Blood Count 5.9 TH/MM3 Red Blood Count 4.22 MIL/MM3 Hemoglobin 11.4 GM/DL Hematocrit 34.7 % Mean Corpuscular Volume 82.4 FL Mean Corpuscular Hemoglobin 26.9 PG Mean Corpuscular Hemoglobin Concent 32.7 % Red Cell Distribution Width 14.2 % Platelet Count 284 TH/MM3 Mean Platelet Volume 7.7 FL Neutrophils (%) (Auto) 66.5 % Lymphocytes (%) (Auto) 21.4 % Monocytes (%) (Auto) 10.4 % Eosinophils (%) (Auto) 0.8 % Basophils (%) (Auto) 0.9 % Neutrophils # (Auto) 3.9 TH/MM3 Lymphocytes # (Auto) 1.3 TH/MM3 Monocytes # (Auto) 0.6 TH/MM3 Eosinophils # (Auto) 0.0 TH/MM3 Basophils # (Auto) 0.1 TH/MM3 CBC Comment DIFF FINAL Differential Comment Laboratory Tests Test 07/02/17 19:46 07/03/17 05:30 Blood Urea Nitrogen 9 MG/DL Creatinine 1.13 MG/DL 1.20 MG/DL Random Glucose 183 MG/DL Total Protein 6.8 GM/DL Albumin 2.5 GM/DL Calcium Level 8.4 MG/DL Alkaline Phosphatase 231 U/L Aspartate Amino Transf (AST/SGOT) 21 U/L Alanine Aminotransferase (ALT/SGPT) 36 U/L Total Bilirubin 0.3 MG/DL Sodium Level 142 MEQ/L Potassium Level 3.7 MEQ/L Chloride Level 106 MEQ/L Carbon Dioxide Level 28.0 MEQ/L Anion Gap 8 MEQ/L Estimat Glomerular Filtration Rate 77 ML/MIN 72 ML/MIN Fasting Glucose 361 MG/DL Imaging Last Impressions Gall Bladder Ultrasound 07/02/17 0000 Signed Impressions: Service Date/Time: Sunday, July 02, 2017 21:13 - CONCLUSION: Thickening of the gallbladder wall. This could be from processes such as hepatic disease versus acalculus cholecystitis. Casper Singh MD Abdomen/Pelvis CT 06/29/17 0000 Signed Impressions: Service Date/Time: Thursday, June 29, 2017 21:42 - CONCLUSION: 1. Nonspecific hepatomegaly. 2. Stones and/or wall thickening/pericholecystic fluid of the gallbladder. 3. Possible mild distal colitis. Otherwise no perceptible acute inflammatory changes. 4. Small, nonspecific ascites. 5. Very small bilateral pleural effusions. Casper Graham MD Chest X-Ray 06/28/[id number] Signed Impressions: Service Date/Time: June 20:43 - CONCLUSION: No evidence of acute cardiopulmonary disease. Left arm PICC line tip is at the atriocaval junction. Casper Graham MD Wrist X-Ray 06/28/17 0000 Signed Impressions: Service Date/Time: June 20:49 - CONCLUSION: Nonspecific soft tissue swelling. No radiopaque foreign body or acute bony abnormality demonstrated. Casper Graham MD Physical Exam CONSTITUTIONAL/GENERAL: This is an adequately nourished patient, in no apparent distress. Looks sick SKIN: No jaundice, rashes, or lesions. CARDIOVASCULAR: Regular rate and rhythm without murmurs, gallops, or rubs. No JVD. Peripheral pulses symmetric. RESPIRATORY/CHEST: Symmetric, unlabored respirations. Clear to auscultation. Breath sounds equal bilaterally. No wheezes, rales, or rhonchi. GASTROINTESTINAL: Abdomen soft, Mildly -tender to palpation RUQ w/o Holley sign , nondistended. No hepato-splenomegaly, or palpable masses. No guarding. Bowel sounds present. MUSCULOSKELETAL: Extremities without clubbing, cyanosis, or edema. No joint tenderness or effusion noted. No calf tenderness. No mottling or clubbing. R wrist incision apears nearly complatelt healed with smnall scab in place NEUROLOGICAL: Awake and alert.Non focal PSYCHIATRIC: No obvious anxiety/depression. no apparent hallucinations or other psychotic thought process. Assessment & Plan Remarks Vir strep osteo R radius sp tx, clinically resolved Enterobacter sepsis, related to PICC: resolved clinically, repeat BC negative H/o IVDU - per pt remote FRANCISCO - better Initilaly suspected cholecystitis - surgery was consulted, recommended no tx, monitoring of pt's smx -Dr Flannery had a conversation with Dr. Desai of radiology. His opinion is that in view of all the studies, the patient most likely has some element of hepatocellular disease which is manifesting the changes associated with the gallbladder. He sees no evidence for acute cholecystitis dc zosyn Levaquine x 7- 10 days OK to dc home Discussed Condition With dw Liudmila Veras MD Jul 04, 2017 17:30
[2017-07-06 03:52] LABS: MITOCHONDRIAL ABS LESS THAN 20.0 U (<=20.0)
--- NOTE | 2017-07-08 14:20 | PQ ---
Physician Query Response Document PATIENT: SORAYA CADENA : 1985 ADMIT DATE: 06/30/2017 9:09 AM DISCH DATE: 07/04/2017 6:41 PM RESPONDING PROVIDER #: Rbraithw QUERY TEXT: Sepsis Query Based on your medical judgement, can you further clarify the folowiin. Sepsis (SIRS due to an infection) 2. Sepsis with Organ Dysfunction 3. A localized Infection only 4. Another condition - please specify 5. Unable to determine - please explain. Depending on your selection above, please indicate one of the below if applicable: - Sepsis was present on Admission - Sepsis developed after admission The patient's Clinical Indicators include: BACTEREMIA wound culture on admission enterobacter stenotrophomas blood culture GNR and enterobacter species lactic acid 1.8 wbd 5.2 and bands 9 T 103.3 HR 110 Query created by: Alicia Law on 07/04/2017 9:47 AM RESPONSE TEXT: Pt had sepsis related to enterobacter infection. 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 Electronically signed by: Joe Umana MD 07/08/2017 2:16 PM
--- NOTE | 2017-07-08 15:53 | HHI.DS ---
Discharge Summary Admission Date Jun 30, 2017 at 09:09 Discharge Date: Jul 04, 2017 Admitting Diagnosis sepsis, GI bleed, hyperuricemia in DM1 (1) Sepsis Diagnosis: Principal ICD Codes: A41.9 - Sepsis, unspecified organism (2) Infectious tenosynovitis of right wrist extensor ICD Codes: M65.131 - Other infective (teno)synovitis, right wrist (3) Diabetes mellitus type 1 Diagnosis: Secondary ICD Codes: E10.9 - Type 1 diabetes mellitus without complications Status: Chronic (4) Hyperglycemia Diagnosis: Secondary ICD Codes: R73.9 - Hyperglycemia, unspecified Status: Acute (5) GI bleed Diagnosis: Secondary ICD Codes: K92.2 - Gastrointestinal hemorrhage, unspecified Status: Acute Brief History Mr. Vaughn is a pleasant 31 y/o WM with type 1 diabetes mellitus, hx of herniated discs and tobacco use. Patient is S/P Exploration, excisional debridement first extensor compartment right wrist and bone biopsy distal radius right wrist, on 05/25/[address] Card then was DC 'd home with PICC line and IV Rocephin. Patient returned to the ER 06/28/17 with c/o generalized body pain and throbbing pain right wrist. Patient also reports subjective fevers unsure when the fevers started. Endorses Nausea but no vomiting. Patient also endorses lower abdomen discomfort that worsened yesterday. He denies change in bowel habits, diarrhea, constipation, weight loss, blood in stool, black tarry stool. Hospital Course Patient is S/P Exploration, excisional debridement first extensor compartment right wrist and bone biopsy distal radius right wrist, on 05/25/[address] Card Patient was DC 'd home with PICC line and IV Rocephin returned to the ER 06/28/17 Consult placed to ID . picc removed. concern pt is misusing it. Cocaine use wound culture (06/28/17) --> Enterobacter, Stenotrophomonas Blood culture positive Enterobacter Repeat Blood Cx (06/30) --> NO growth to date 2D echocardiogram (06/30) --> NO vegetation CT and US possible cholecystitis Pt was seen by ID and General Surgery plus GI. He was thought to have cholecystitis and general surgery felt his bacteremia needed cleared. They wanted him to fu for possible cholecystecomy. GI performed egd/colonoscopy for gib concerns but no active bleed identified. We initially planned iv abx but pt refused snf placement or going to infusion center. no picc per ID due to misuse. At d/c we decided to send him on 10 more days of levaquin po. (2) Diabetes mellitus type 1 (3) Hyperglycemia (4) GI bleed Pt Condition on Discharge: Stable Discharge Disposition: Discharge Home Discharge Instructions DIET: Follow Instructions for: As Tolerated, No Restrictions Activities you can perform: Regular-No Restrictions Follow up Referrals: Gastroenterology - 2 Weeks with Irina Sorensen MD PCP Follow-up - [address] Alvarez Psychiatry Adult - [address] Gonzalez at [facility] New Medications: Levofloxacin (Levaquin) 750 Mg Tablet 750 MG PO DAILY for Infection for 10 Days, #10 TAB 0 Refills Continued Medications: Insulin Aspart Inj (Novolog Inj) 1,000 Unit/10 Ml Vial 0 SQ DIRECTED for Blood Sugar Management, ML 0 Refills Sliding Scale as directed. Insulin Glargine Inj (Lantus Inj) 1,000 Unit/10 Ml Vial 30 UNITS SQ HS for Blood Sugar Management, VIAL 0 Refills Discontinued Medications: Ceftriaxone Inj (Ceftriaxone Inj) 2 Gram Inj 2 GM IM Q24H for Infection for 40 Days, VIAL 0 Refills Epinephrine Inj (Epinephrine Inj) 1 Mg/Ml (1 Ml) Inj 0.3 MG IV PUSH ONCE PRN for ALLERGIC REACTION, #1 VIAL Epinephrine Inj (Epinephrine Inj) 1 Mg/Ml (1 Ml) Inj 0.3 MG SQ ONCE PRN for ALLERGIC REACTION, #1 VIAL Give with any signs of respiratory distress. Hydrocortisone Inj (Solu-Cortef Inj) 250 Mg/2 Ml Inj 250 MG IV PUSH ONCE PRN for ALLERGIC REACTION, #1 VIAL 0 Refills Give over 30-60 seconds. Hydromorphone (Dilaudid) 2 Mg Tab 2 MG PO Q4H PRN for pain, #10 TAB 0 Refills Joe Umana MD Jul 08, 2017 15:53
== END 2017-07-04 18:41 | disposition home or self-care (01) | DRG 314 ==
LOC: NEPE 20:17 → NEDA 22:16 → INTOOBSV 22:16 → N04B 22:54 → OBSVTOIN 06-30 09:09
PROVIDERS: ADMIT Hospitalist; ATTEND Hospitalist
PROC: 0DB98ZX Excision of Duodenum, Via Natural or Artificial Opening Endoscopic, Diagnostic (ICD-10-PCS; 2017-07-02)
PROC: 0DB68ZX Excision of Stomach, Via Natural or Artificial Opening Endoscopic, Diagnostic (ICD-10-PCS; 2017-07-02)
PROC: 0DB38ZX Excision of Lower Esophagus, Via Natural or Artificial Opening Endoscopic, Diagnostic (ICD-10-PCS; 2017-07-02)
PROC: 0DBK8ZX Excision of Ascending Colon, Via Natural or Artificial Opening Endoscopic, Diagnostic (ICD-10-PCS; principal; 2017-07-02 11:26)
PROC: 0DBM8ZX Excision of Descending Colon, Via Natural or Artificial Opening Endoscopic, Diagnostic (ICD-10-PCS; 2017-07-02 11:26)
DX: T80.211A Bloodstream infection due to central venous catheter, initial encounter (principal); A41.59 Other Gram-negative sepsis; N17.9 Acute kidney failure, unspecified; E46 Unspecified protein-calorie malnutrition; M86.131 Other acute osteomyelitis, right radius and ulna; R18.8 Other ascites; K92.2 Gastrointestinal hemorrhage, unspecified; E10.65 Type 1 diabetes mellitus with hyperglycemia; Z79.4 Long term (current) use of insulin; F17.210 Nicotine dependence, cigarettes, uncomplicated; M65.131 Other infective (teno)synovitis, right wrist; D64.9 Anemia, unspecified; B19.20 Unspecified viral hepatitis C without hepatic coma; M54.9 Dorsalgia, unspecified; K52.9 Noninfective gastroenteritis and colitis, unspecified; K80.20 Calculus of gallbladder without cholecystitis without obstruction; K44.9 Diaphragmatic hernia without obstruction or gangrene; K29.70 Gastritis, unspecified, without bleeding; K64.8 Other hemorrhoids; K64.4 Residual hemorrhoidal skin tags; K21.0 Gastro-esophageal reflux disease with esophagitis; F14.90 Cocaine use, unspecified, uncomplicated; Y84.8 Other medical procedures as the cause of abnormal reaction of the patient, or of later complication, without mention of misadventure at the time of the procedure; Z83.3 Family history of diabetes mellitus
CPT/HCPCS: 36569; 71010; 73110; 74177; 76705; 76937; 77001; 80048; 80053; 80074; 80202; 80307; 81001; 82010; 82103; 82105; 82390; 82550; 82552; 82565; 82728; 82805; 82947; 82948; 83520; 83540; 83550; 83605; 83690; 83735; 84100; 84484; 85007; 85025; 85027; 85610; 85730; 86038; 86255; 86403; 86850; 86900; 86901; 87040; 87070; 87071; 87077; 87184; 87186; 87205; 88305; 88312; 93005; 93308; 96365; 96366; 96372; 96375; 96376; 99284; C1751; C9113; G0378; G0481; J0692; J1170; J1642; J1815; J2405; J2543; J3370; J7030; J7050; Q9963; Q9967

== ENCOUNTER 2017-10-21 05:09 | Emergency (ER) | payer OTHER ==
[~2017-10-21] VITALS: Ht 165.1 cm; Wt 72.0 kg
[~2017-10-21 05:09] MED LIST changes: -CEFT2INJ IM; -DILA2TAB2 PO; -EPIN1INJ21 IV PUSH; -EPIN1INJ21 SQ; +LEVA750T9 PO; -SOLU250I IV PUSH
[2017-10-21 05:12] VITALS: BP 138/72; PULSE 98; RESP 16; TEMP 98.4; O2SAT 98
[2017-10-21] MEDS ORDERED: SODIUM CHLOR 0.9% 1000 ML INJ 1,000 ML IV SCH (05:26)
[2017-10-21 05:29] VITALS: BP 135/72; PULSE 98; RESP 18; O2SAT 97
[2017-10-21] MEDS ORDERED: LANTUS2P SQ (05:29)
[2017-10-21] MEDS ORDERED: SODIUM CHLORIDE 0.9% FLUSH 10 ML FLUSH IV FLUSH PRN (05:30)
[2017-10-21] MEDS ORDERED: ONDANSETRON HCL 4 MG/2 ML VIAL IVP ONE (05:30)
[2017-10-21] MEDS ORDERED: KETOROLAC TROMETHAMINE 30 MG/ML (IVP) VIAL IV PUSH ONE (05:30)
[2017-10-21] MEDS ORDERED: DIATRIZOATE MEGLUM/DIATRIZOATE SOD 9 ML CUP ONE (05:37)
[2017-10-21 05:52] LABS: AUTOMATED NEUTROPHIL # 11.5 TH/MM3 (1.8-7.7); BASOPHIL # 0.1 TH/MM3 (0-0.2); BASOPHIL % 0.5 % (0.0-2.0); EOSINOPHIL # 0.1 TH/MM3 (0-0.4); EOSINOPHIL % 0.8 % (0.0-4.0); HEMATOCRIT 36.7 % (39.0-51.0); HEMOGLOBIN 12.4 GM/DL (13.0-17.0); LYMPH % 12.7 % (9.0-44.0); LYMPHOCYTE # 1.9 TH/MM3 (1.0-4.8); MEAN CELL VOLUME 82.1 FL (80.0-100.0); MEAN CORPUSCULAR HEMOGLOBIN 27.7 PG (27.0-34.0); MEAN CORPUSCULAR HGB CONC 33.7 % (32.0-36.0); MEAN PLATELET VOLUME 6.9 FL (7.0-11.0); MONO % 7.8 % (0.0-8.0); MONOCYTE # 1.2 TH/MM3 (0-0.9); NEUT % 78.2 % (16.0-70.0); PLATELET COUNT 292 TH/MM3 (150-450); RED BLOOD COUNT 4.47 MIL/MM3 (4.50-5.90); RED CELL DISTRIBUTION WIDTH 14.6 % (11.6-17.2); WHITE BLOOD COUNT 14.7 TH/MM3 (4.0-11.0)
[2017-10-21 06:02] LABS: ALBUMIN 3.2 GM/DL (3.4-5.0); ALT (GPT) 21 U/L (12-78); AST (GOT) 21 U/L (15-37); BICARBONATE 30.3 MEQ/L (21.0-32.0); BLOOD UREA NITROGEN 14 MG/DL (7-18); CHLORIDE 101 MEQ/L (98-107); CREATININE 1.16 MG/DL (0.60-1.30); GLOMERULAR FILTRATION RATE 74 ML/MIN (>89); GLUCOSE,RANDOM 137 MG/DL (74-106); LIPASE 48 U/L (73-393); SODIUM (NA) 138 MEQ/L (136-145)
[2017-10-21 06:05] LABS: ALKALINE PHOSPHATASE 78 U/L (45-117); TOTAL BILIRUBIN ADULT 0.4 MG/DL (0.2-1.0); TOTAL PROTEIN 7.3 GM/DL (6.4-8.2)
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
[2017-10-21 06:37] VITALS: BP 125/76; PULSE 71; RESP 18; O2SAT 97
[2017-10-21] MEDS ORDERED: IOHEXOL 350 MG/ML 10 ML VIAL (for RAD DIAG) IVCONTRAST ONE (06:44)
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
[2017-10-21 07:06] LABS: BILIRUBIN, URINE NEG (NEG); BLOOD, URINE NEG (NEG); GLUCOSE,URINE 150 mg/dL (NEG); HYALINE CAST, URINE 1 /lpf (RARE); KETONE, URINE NEG (NEG); MUCUS URINE FEW /lpf (OCC); NITRITE,URINE NEG (NEG); URINE COLOR YELLOW (YELLW/STRAW); URINE LEUKOCYTE ESTERASE NEG (NEG)
[2017-10-21 08:27] VITALS: BP 120/70
== END 2017-10-21 08:28 | disposition home or self-care (01) ==
LOC: NEPC 05:09
DX: R10.11 Right upper quadrant pain (principal); R19.5 Other fecal abnormalities; E11.9 Type 2 diabetes mellitus without complications; F41.9 Anxiety disorder, unspecified; F32.9 Major depressive disorder, single episode, unspecified; F17.200 Nicotine dependence, unspecified, uncomplicated; Z98.890 Other specified postprocedural states; Z79.4 Long term (current) use of insulin
CPT/HCPCS: 74177; 80053; 81001; 83605; 83690; 85025; 96361; 96374; 96375; 99285; J1885; J2405; J7030; Q9963; Q9967